=== PATIENT | male | born 1980 | race Caucasian/White ===

== ENCOUNTER 2019-01-02 17:51 | Inpatient (IN) ==
--- NOTE | 2019-01-02 18:14 | Emergency Department Note ---
Disposition Clinical Impression: Suicidal ideation, Positive urine drug screen Chest pain Qualifiers: Chest pain type: unspecified Qualified Code(s): R07.9 - Chest pain, unspecified Disposition: Still a Patient Condition: Good Referrals: NONE,PCP [Primary Care Provider] - Forms: ED Satisfaction Letter Time of Disposition: 22:21 General Adult HPI - General Chief complaint: ED Chest Pain Stated complaint: CP,SI Time Seen by Provider: 01/02/19 17:57 Source: patient Mode of arrival: private vehicle Limitations: no limitations Nursing Notes Reviewed: Yes Vital Signs Reviewed: Yes - History of Present Illness HPI Narrative: This is a 38-year-old male with a history of bipolar disorder, sick sinus syndrome, DVT and PE currently on anticoagulation who presents with multiple complaints. First complaint is chest.. States it began today. States he feels like people are out to get him and is concerned that this is anxiety. He has no history of CAD. He has no shortness of breath associated with this. Also states that he is having suicidal thoughts and thought about taking a knife today and putting it into his chest as far as it would go. States he has had prior self injury behavior before by cutting and hanging himself. Denies any alcohol or drug use. He has been compliant with his medications. No other complaints. Pt Subjective Complaint: Chest pain, suicidal thoughts Onset (ago): day(s) Location: chest Pain Scale: 8 Improves with: nothing Worsens with: nothing Associated symptoms: Reports: chest pain Treatments Prior to Arrival: none - Related Data Home Medications Medication Instructions Recorded Confirmed Rivaroxaban [Xarelto] 20 mg PO 1700 08/18/15 12/31/18 Albuterol Sulfate [Proventil 2 puff IH Q4HR PRN 10/28/18 12/31/18 Inhaler] Cholecalciferol (D-3) [Vitamin D] 1,000 unit PO DAILY 10/28/18 12/31/18 Divalproex (12 HR) [Depakote (12 1,000 mg PO HS 10/28/18 12/31/18 HR)] Divalproex (12 HR) [Depakote (12 500 mg PO QAM 10/28/18 12/31/18 HR)] Doxepin [Sinequan] 25 mg PO HS 10/28/18 12/31/18 Escitalopram [Lexapro] 10 mg PO DAILY 10/28/18 12/31/18 Lisinopril 30 mg PO DAILY 10/28/18 12/31/18 cloNIDine HCl [CloNIDine HCl] 0.2 mg PO DAILY 10/28/18 12/31/18 Previous Rx's Medication Instructions Recorded clonazePAM [Klonopin] 1 mg PO BID 15 Days #30 tablet 11/02/18 hydrOXYzine HCl [Hydroxyzine HCl] 50 mg PO TID #20 tablet 12/21/18 Allergies Allergy/AdvReac Type Severity Reaction Status Date / Time haloperidol [From Haldol] Allergy See Verified 01/02/19 17:54 Comments quetiapine [From Seroquel] Allergy Swelling Verified 01/02/19 17:54 of Lip/Tongue/Throat vancomycin Allergy Anaphylaxis Verified 01/02/19 17:54 SOLUMEDROL Allergy Anaphylaxis Uncoded 12/21/18 01:29 All systems ED: reviewed and negative except as stated. Constitutional: Denies: fever Cardiovascular: Reports: chest pain Respiratory: Denies: cough, dyspnea Gastrointestinal: Denies: abdominal pain, nausea, vomiting, diarrhea Psychiatric: Reports: anxiety, depression, suicidal thoughts. Denies: homicidal thoughts, auditory hallucinations, visual hallucinations Past Medical History - Past Medical History Attestation: Yes The following information was validated with the patient. Source: patient Medical history: Reports: cardiomyopathy, CHF, DVT, hyperlipidemia, hypertension, IV drug use, kidney stones, pulmonary embolus, other Surgical history: Reports: pacemaker/AICD, other Psychiatric history: Reports: anxiety, ADHD, bipolar, PTSD, prior suicide attempt, previous psychiatric hospitalization - Social History Smoking Status: Current every day smoker Smokeless Tobacco Status: No Alcohol use: Reports: none Drug use: Reports: cocaine, opiates, marijuana, methamphetamine, other Physical Exam - General Limitations: no limitations General appearance: alert, anxious - Head Head exam: atraumatic, normocephalic, normal inspection - Eye Eye exam: Present: normal appearance - ENT ENT exam: normal exam - Neck Neck exam: Present: normal inspection - Chest Chest inspection: Present: normal inspection, symmetric chest wall rise - Respiratory Respiratory exam: Present: normal lung sounds bilaterally - Cardiovascular Cardiovascular exam: Present: normal rhythm, tachycardia, irregular rhythm - Abdominal Exam Abdominal exam: Present: soft, Non-Tender. Absent: tenderness, distention, guarding, rigidity - Extremities Exam Extremities exam: Present: normal inspection, full ROM - Expanded Upper Extremity Exam Shoulder exam: Present: normal inspection, full ROM Arm exam: Present: normal inspection, full ROM Elbow exam: Present: normal inspection, full ROM Forearm/Wrist exam: Present: normal inspection, full ROM Hand exam: Present: normal inspection, full ROM Vascular exam: Normal: radial pulse - Expanded Lower Extremity Exam Hip/Pelvis exam: Present: normal inspection, full ROM Upper leg exam: Present: normal inspection, full ROM Knee exam: Present: normal inspection, full ROM Lower leg exam: Present: normal inspection, full ROM Ankle exam: Present: normal inspection, full ROM Foot/toe exam: Present: normal inspection, full ROM - Neurological Exam Neurological exam: Present: alert, other (Alert, GCS 15, no focal deficits) - Psychiatric Psychiatric exam: Present: anxious, suicidal ideation - Skin Skin exam: Present: warm, dry Course Course Narrative: Seen and examined. He is rather anxious here. He has current thoughts of killing himself. Patient is pink slipped. We will get an EKG, chest x-ray and troponin for chest pain, labs for medical clearance for psychiatric evaluation. - Reevaluation(s) Reevaluation #1: Patient has a heart score is low risk. CTA negative for pulmonary embolism. Discussed with psychiatry who will be down to evaluate the patient. Reevaluation #2: Patient evaluated by psychiatry. They are first going to attempt to place him back to the facility that he was discharged from. Pending placement. Time: 22:16 Vital Signs Temperature 98.1 F 01/02/19 17:52 Pulse Rate 106 01/02/19 17:52 Respiratory Rate 16 01/02/19 17:52 Blood Pressure 144/95 01/02/19 17:52 O2 Sat by Pulse Oximetry 97 01/02/19 17:52 Temperature 98.1 F 01/02/19 17:52 Pulse Rate 85 01/02/19 20:55 Respiratory Rate 18 01/02/19 20:55 Blood Pressure 125/74 01/02/19 20:55 O2 Sat by Pulse Oximetry 99 01/02/19 20:55 Oxygen Delivery Oxygen Delivery Room Air Medical Decision Making - MDM Narrative Medical decision making narrative: 38-year-old male with underlying bipolar disorder who presented with chest pain and suicidal ideations. In terms of his chest pain he is low risk per heart score. CTA negative for PE. Was medically cleared and evaluated by psychiatry. At the time of this documentation we are attempting to place him. Patient has been pink slipped. 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 Mcnair, pending placement. - Lab Data Lab results reviewed: Yes I reviewed the patient's lab results. Result diagrams: 01/02/19 18:08 01/02/19 18:08 Lab Results 01/02/19 01/02/19 01/02/19 Range/Units 18:05 18:05 18:08 WBC 6.5 (4.3-11.1) K/mcL RBC 3.92 L (4.19-5.50) M/mcL Hgb 12.1 L D (12.9-16.9) g/dL Hct 35.8 L (37.5-50.1) % MCV 91.3 (83.0-100.0) fL MCH 30.9 (28.0-33.3) pg MCHC 33.8 (31.6-35.5) g/dL RDW 13.0 (11.5-14.5) % Plt Count 241 (140-400) K/mcL MPV 9.6 (9.4-12.4) fL Immature Gran % 0.2 (0-4) % Seg Neutrophils % 49.2 % Lymphocytes % 38.5 % Monocytes % 9.0 % Eosinophils % 2.8 % Basophils % 0.3 % Neutrophils # 3.2 (1.6-8.9) K/mcL Lymphocytes # 2.5 (0.6-4.6) K/mcL Monocytes # 0.6 (0.0-1.3) K/mcL Eosinophils # 0.2 (0.0-0.6) K/mcL Basophils # 0.0 (0.0-0.2) K/mcL Sodium (136-145) mEq/L Potassium (3.5-5.1) mEq/L Chloride (98-107) mEq/L Carbon Dioxide (23-29) mEq/L BUN (6-20) mg/dL Creatinine (0.70-1.30) mg/dL Est GFR ( Amer) (> 60) Est GFR (Non-Af Amer) (> 60) BUN/Creatinine Ratio (6-26) Glucose (70-105) mg/dL Calculated Osmolality (280-300) Calcium (8.6-10.3) mg/dL Troponin I (< 0.04) ng/mL Urine Color Yellow (Yellow) Urine Clarity Clear (Clear) Urine pH 6.0 (5.0-8.0) pH Units Ur Specific [place] 1.022 (1.010-1.025) Urine Protein Negative (Neg-Trace) mg/dL Urine Glucose (UA) Normal (Normal) mg/dL Urine Ketones Trace H (Negative) mg/dL Urine Blood Negative (Negative) Urine Nitrite Negative (Negative) Urine Bilirubin Negative (Negative) Urine Urobilinogen Normal (Normal) mg/dL Ur Leukocyte Esterase Negative (Negative) Salicylates (15.0-30.0) mg/dL Urine Opiates Screen Negative (Rhjlfs=585) ng/mL Ur Buprenorphine Scrn Positive H (Cutoff=5) ng/mL Acetaminophen (10-20) mcg/mL Ur Barbiturates Screen Negative (Wvelzc=158) ng/mL Valproic Acid (50-100) mcg/mL Ur Phencyclidine Scrn Negative (Cutoff=25) ng/mL Ur Amphetamines Screen Positive H (Jpgiss=1581) ng/mL U Benzodiazepines Scrn Negative (Jyohxi=364) ng/mL Urine Cocaine Screen Negative (Cutoff= 300) ng/mL U Marijuana (THC) Screen Negative (Cutoff = 50) ng/mL Ur Drug Screen Interp See Below Ethyl Alcohol (Less than 10) mg/dL 01/02/19 01/02/19 Range/Units 18:08 18:08 WBC (4.3-11.1) K/mcL RBC (4.19-5.50) M/mcL Hgb (12.9-16.9) g/dL Hct (37.5-50.1) % MCV (83.0-100.0) fL MCH (28.0-33.3) pg MCHC (31.6-35.5) g/dL RDW (11.5-14.5) % Plt Count (140-400) K/mcL MPV (9.4-12.4) fL Immature Gran % (0-4) % Seg Neutrophils % % Lymphocytes % % Monocytes % % Eosinophils % % Basophils % % Neutrophils # (1.6-8.9) K/mcL Lymphocytes # (0.6-4.6) K/mcL Monocytes # (0.0-1.3) K/mcL Eosinophils # (0.0-0.6) K/mcL Basophils # (0.0-0.2) K/mcL Sodium 141 (136-145) mEq/L Potassium 3.8 (3.5-5.1) mEq/L Chloride 107 (98-107) mEq/L Carbon Dioxide 25 (23-29) mEq/L BUN 13 (6-20) mg/dL Creatinine 0.70 (0.70-1.30) mg/dL Est GFR ( Amer) > 60 (> 60) Est GFR (Non-Af Amer) > 60 (> 60) BUN/Creatinine Ratio 19 (6-26) Glucose 115 H (70-105) mg/dL Calculated Osmolality 293 (280-300) Calcium 8.9 (8.6-10.3) mg/dL Troponin I < 0.03 (< 0.04) ng/mL Urine Color (Yellow) Urine Clarity (Clear) Urine pH (5.0-8.0) pH Units Ur Specific [place] (1.010-1.025) Urine Protein (Neg-Trace) mg/dL Urine Glucose (UA) (Normal) mg/dL Urine Ketones (Negative) mg/dL Urine Blood (Negative) Urine Nitrite (Negative) Urine Bilirubin (Negative) Urine Urobilinogen (Normal) mg/dL Ur Leukocyte Esterase (Negative) Salicylates < 2.5 L (15.0-30.0) mg/dL Urine Opiates Screen (Ldmrlk=139) ng/mL Ur Buprenorphine Scrn (Cutoff=5) ng/mL Acetaminophen < 10 L (10-20) mcg/mL Ur Barbiturates Screen (Aeessz=822) ng/mL Valproic Acid 68 (50-100) mcg/mL Ur Phencyclidine Scrn (Cutoff=25) ng/mL Ur Amphetamines Screen (Xcwqjz=5975) ng/mL U Benzodiazepines Scrn (Zwxmlf=058) ng/mL Urine Cocaine Screen (Cutoff= 300) ng/mL U Marijuana (THC) Screen (Cutoff = 50) ng/mL Ur Drug Screen Interp Ethyl Alcohol < 10 (Less than 10) mg/dL - Radiology Data Radiology results reviewed: Yes I reviewed the patient's radiology results. Chest X-Ray 01/02/19 17:57 IMPRESSION: No radiographic evidence of acute cardiopulmonary disease. D/ / Luis Croft / Luis Croft Interpreting Provider: Luis Croft Chest CTA 01/02/19 19:36 IMPRESSION: No evidence of pulmonary embolism or acute pulmonary abnormality. D/ / Rajesh Ackerman MD / Rajesh Ackerman MD Interpreting Provider: Rajesh Ackerman MD - EKG Data EKG #1 EKG attestation: Yes I reviewed and interpreted this EKG. EKG results narrative: EKG demonstrates a sinus rhythm with rate of 93 beats or minute. Normal axis. Normal intervals. Normal R-wave progression. No gross ST elevations or depress ions. No acute ischemic findings.
[2019-01-02 18:38] LABS: Basophils % 0.3 %; Eosinophils # 0.2 K/mcL (0.0-0.6); Eosinophils % 2.8 %; Hematocrit 35.8 % (37.5-50.1); Immature Granulocytes % 0.2 % (0-4); Lymphocytes # 2.5 K/mcL (0.6-4.6); Lymphocytes % 38.5 %; Mean Corpuscular HGB Conc 33.8 g/dL (31.6-35.5); Mean Corpuscular Hemoglobin 30.9 pg (28.0-33.3); Mean Corpuscular Volume 91.3 fL (83.0-100.0); Mean Platelet Volume 9.6 fL (9.4-12.4); Monocytes # 0.6 K/mcL (0.0-1.3); Neutrophils # 3.2 K/mcL (1.6-8.9); Platelet Count 241 K/mcL (140-400); Red Blood Count 3.92 M/mcL (4.19-5.50); Segmented Neutrophils % 49.2 %; White Blood Count 6.5 K/mcL (4.3-11.1)
[2019-01-02 18:44] LABS: Hemoglobin 12.1 g/dL (12.9-16.9)
[2019-01-02 18:51] LABS: Bilirubin,Urine Negative (Negative); Blood,Urine Negative (Negative); Clarity,Urine Clear (Clear); Color,Urine Yellow (Yellow); Glucose,Urine (UA) Normal (Normal); Ketones,Urine Trace mg/dL (Negative); Leukocyte Esterase,Urine Negative (Negative); Nitrite,Urine Negative (Negative); Protein,Urine Negative (Neg-Trace); Specific Gravity,Urine 1.022 (1.010-1.025); Urobilinogen,Urine Normal (Normal)
[2019-01-02 18:56] LABS: Troponin I < 0.03 ng/mL (< 0.04)
[2019-01-02 19:00] LABS: Acetaminophen < 10 mcg/mL (10-20); BUN/Creatinine Ratio 19 (6-26); Blood Urea Nitrogen 13 mg/dL (6-20); Calcium 8.9 mg/dL (8.6-10.3); Carbon Dioxide 25 mEq/L (23-29); Chloride 107 mEq/L (98-107); Ethanol < 10 mg/dL (Less than 10); Glucose 115 mg/dL (70-105); Osmolality,Calculated 293 (280-300); Potassium 3.8 mEq/L (3.5-5.1); Salicylate < 2.5 mg/dL (15.0-30.0); Sodium 141 mEq/L (136-145); eGFR For African Americans > 60 (> 60); eGFR For Non-African Americans > 60 (> 60)
[2019-01-02 19:03] LABS: Valproate 68 mcg/mL (50-100)
[2019-01-02 19:09] LABS: Amphetamine Screen,Urine Positive ng/mL (Cutoff=1000); Barbiturate Screen,Urine Negative ng/mL (Cutoff=200); Benzodiazepines Screen,Urine Negative ng/mL (Cutoff=200); Cannabinoid Screen,Urine Negative ng/mL (Cutoff = 50); Cocaine Screen,Urine Negative ng/mL (Cutoff= 300); Opiate Screen,Urine Negative ng/mL (Cutoff=300); Phencyclidine Screen,Urine Negative ng/mL (Cutoff=25)
[2019-01-02] MEDS ORDERED: Isovue-370 500 ML BOTTLE IVP ONE (19:36)
[2019-01-02] MEDS ORDERED: rOPINIRole 1 MG TABLET PO SCH (23:15)
[2019-01-02] MEDS ORDERED: Divalproex (12 HR) 500 MG TABLET PO SCH (23:15)
--- NOTE | 2019-01-03 02:11 | Emergency Department Note ---
Disposition Clinical Impression: Suicidal ideation, Positive urine drug screen Chest pain Qualifiers: Chest pain type: unspecified Qualified Code(s): R07.9 - Chest pain, unspecified Disposition: Still a Patient Condition: Good Referrals: NONE,PCP [Primary Care Provider] - Forms: ED Satisfaction Letter Time of Disposition: 06:51 General Adult HPI - General Chief complaint: ED Chest Pain Stated complaint: CP,SI Time Seen by Provider: 01/02/19 17:57 Source: patient Mode of arrival: private vehicle Limitations: no limitations - History of Present Illness Location: chest Pain Scale: 8 Improves with: nothing Worsens with: nothing Associated symptoms: Reports: chest pain Treatments Prior to Arrival: none - Related Data Home Medications Medication Instructions Recorded Confirmed Rivaroxaban [Xarelto] 20 mg PO 1700 08/18/15 01/02/19 Albuterol Sulfate [Proventil 2 puff IH Q4HR PRN 10/28/18 01/02/19 Inhaler] Divalproex (12 HR) [Depakote (12 1,000 mg PO HS 10/28/18 01/02/19 HR)] Divalproex (12 HR) [Depakote (12 500 mg PO QAM 10/28/18 01/02/19 HR)] Lisinopril 30 mg PO DAILY 10/28/18 01/02/19 Benztropine [Cogentin] 0.5 mg PO BID 01/02/19 01/02/19 Doxepin HCl 50 mg PO HS 01/02/19 01/02/19 Gabapentin [Neurontin] 300 mg PO TID 01/02/19 01/02/19 Pantoprazole Sodium [Protonix] 40 mg PO QAM 01/02/19 01/02/19 Ranitidine HCl [Acid Field Sales Executive] 150 mg PO BID PRN 01/02/19 01/02/19 rOPINIRole [Requip] 1 mg PO HS 01/02/19 01/02/19 Previous Rx's Medication Instructions Recorded clonazePAM [Klonopin] 1 mg PO BID 15 Days #30 tablet 11/02/18 Allergies Allergy/AdvReac Type Severity Reaction Status Date / Time haloperidol [From Haldol] Allergy See Verified 01/02/19 17:54 Comments quetiapine [From Seroquel] Allergy Swelling Verified 01/02/19 17:54 of Lip/Tongue/Throat vancomycin Allergy Anaphylaxis Verified 01/02/19 17:54 SOLUMEDROL Allergy Anaphylaxis Uncoded 12/21/18 01:29 Constitutional: Denies: fever Cardiovascular: Reports: chest pain Respiratory: Denies: cough, dyspnea Gastrointestinal: Denies: abdominal pain, nausea, vomiting, diarrhea Psychiatric: Reports: anxiety, depression, suicidal thoughts. Denies: homicidal thoughts, auditory hallucinations, visual hallucinations Past Medical History - Past Medical History Medical history: Reports: cardiomyopathy, CHF, DVT, hyperlipidemia, hypertension, IV drug use, kidney stones, pulmonary embolus, other Surgical history: Reports: pacemaker/AICD, other Psychiatric history: Reports: anxiety, ADHD, bipolar, PTSD, prior suicide attempt, previous psychiatric hospitalization - Social History Smoking Status: Current every day smoker Smokeless Tobacco Status: No Alcohol use: Reports: none Drug use: Reports: cocaine, opiates, marijuana, methamphetamine, other Physical Exam - General Limitations: no limitations General appearance: alert, anxious Course Course Narrative: This patient was signed out to me at shift change from Dr. Callahan. Please refer to his note for complete details of the history and physical examination. Patient presented to the emergency department with multiple complaints including suicidal ideation. Patient was apparently just discharged from a psychiatric facility. Labs obtained and patient medically cleared for psychiatric evaluation here in the department. Patient was seen and evaluated by the [address] psychiatry department and at shift change is currently awaiting psychiatric bed placement. 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 At morning shift change [facility], Dr. Zhao. Vital Signs Temperature 98.1 F 01/02/19 17:52 Pulse Rate 106 01/02/19 17:52 Respiratory Rate 16 01/02/19 17:52 Blood Pressure 144/95 01/02/19 17:52 O2 Sat by Pulse Oximetry 97 01/02/19 17:52 Temperature 98.1 F 01/02/19 17:52 Pulse Rate 68 01/03/19 06:15 Respiratory Rate 16 01/03/19 06:15 Blood Pressure 109/74 01/03/19 06:15 O2 Sat by Pulse Oximetry 98 01/03/19 06:15 Oxygen Delivery Oxygen Delivery Room Air Medical Decision Making - Lab Data Result diagrams: 01/02/19 18:08 01/02/19 18:08 Lab Results 01/02/19 01/02/1901/02/19 Range/Units 18:05 18:05 18:08 WBC 6.5 (4.3-11.1) K/mcL RBC 3.92 L (4.19-5.50) M/mcL Hgb 12.1 L D (12.9-16.9) g/dL Hct 35.8 L (37.5-50.1) % MCV 91.3 (83.0-100.0) fL MCH 30.9 (28.0-33.3) pg MCHC 33.8 (31.6-35.5) g/dL RDW 13.0 (11.5-14.5) % Plt Count 241 (140-400) K/mcL MPV 9.6 (9.4-12.4) fL Immature Gran % 0.2 (0-4) % Seg Neutrophils % 49.2 % Lymphocytes % 38.5 % Monocytes % 9.0 % Eosinophils % 2.8 % Basophils % 0.3 % Neutrophils # 3.2 (1.6-8.9) K/mcL Lymphocytes # 2.5 (0.6-4.6) K/mcL Monocytes # 0.6 (0.0-1.3) K/mcL Eosinophils # 0.2 (0.0-0.6) K/mcL Basophils # 0.0 (0.0-0.2) K/mcL Sodium (136-145) mEq/L Potassium (3.5-5.1) mEq/L Chloride (98-107) mEq/L Carbon Dioxide (23-29) mEq/L BUN (6-20) mg/dL Creatinine (0.70-1.30) mg/dL Est GFR ( Amer) (> 60) Est GFR (Non-Af Amer) (> 60) BUN/Creatinine Ratio (6-26) Glucose (70-105) mg/dL Calculated Osmolality (280-300) Calcium (8.6-10.3) mg/dL Troponin I (< 0.04) ng/mL Urine Color Yellow (Yellow) Urine Clarity Clear (Clear) Urine pH 6.0 (5.0-8.0) pH Units Ur Specific [place] 1.022 (1.010-1.025) Urine Protein Negative (Neg-Trace) mg/dL Urine Glucose (UA) Normal (Normal) mg/dL Urine Ketones Trace H (Negative) mg/dL Urine Blood Negative (Negative) Urine Nitrite Negative (Negative) Urine Bilirubin Negative (Negative) Urine Urobilinogen Normal (Normal) mg/dL Ur Leukocyte Esterase Negative (Negative) Salicylates (15.0-30.0) mg/dL Urine Opiates Screen Negative (Klpsmo=320) ng/mL Ur Buprenorphine Scrn Positive H (Cutoff=5) ng/mL Acetaminophen (10-20) mcg/mL Ur Barbiturates Screen Negative (Ddcucd=673) ng/mL Valproic Acid (50-100) mcg/mL Ur Phencyclidine Scrn Negative (Cutoff=25) ng/mL Ur Amphetamines Screen Positive H (Wrxcxn=9873) ng/mL U Benzodiazepines Scrn Negative (Nvyvya=878) ng/mL Urine Cocaine Screen Negative (Cutoff= 300) ng/mL U Marijuana (THC) Screen Negative (Cutoff = 50) ng/mL Ur Drug Screen Interp See Below Ethyl Alcohol (Less than 10) mg/dL 01/02/19 01/02/19 Range/Units 18:08 18:08 WBC (4.3-11.1) K/mcL RBC (4.19-5.50) M/mcL Hgb (12.9-16.9) g/dL Hct (37.5-50.1) % MCV (83.0-100.0) fL MCH (28.0-33.3) pg MCHC (31.6-35.5) g/dL RDW (11.5-14.5) % Plt Count (140-400) K/mcL MPV (9.4-12.4) fL Immature Gran % (0-4) % Seg Neutrophils % % Lymphocytes % % Monocytes % % Eosinophils % % Basophils % % Neutrophils # (1.6-8.9) K/mcL Lymphocytes # (0.6-4.6) K/mcL Monocytes # (0.0-1.3) K/mcL Eosinophils # (0.0-0.6) K/mcL Basophils # (0.0-0.2) K/mcL Sodium 141 (136-145) mEq/L Potassium 3.8 (3.5-5.1) mEq/L Chloride 107 (98-107) mEq/L Carbon Dioxide 25 (23-29) mEq/L BUN 13 (6-20) mg/dL Creatinine 0.70 (0.70-1.30) mg/dL Est GFR ( Amer) > 60 (> 60) Est GFR (Non-Af Amer) > 60 (> 60) BUN/Creatinine Ratio 19 (6-26) Glucose 115 H (70-105) mg/dL Calculated Osmolality 293 (280-300) Calcium 8.9 (8.6-10.3) mg/dL Troponin I < 0.03 (< 0.04) ng/mL Urine Color (Yellow) Urine Clarity (Clear) Urine pH (5.0-8.0) pH Units Ur Specific [place] (1.010-1.025) Urine Protein (Neg-Trace) mg/dL Urine Glucose (UA) (Normal) mg/dL Urine Ketones (Negative) mg/dL Urine Blood (Negative) Urine Nitrite (Negative) Urine Bilirubin (Negative) Urine Urobilinogen (Normal) mg/dL Ur Leukocyte Esterase (Negative) Salicylates < 2.5 L (15.0-30.0) mg/dL Urine Opiates Screen (Wrvpgw=353) ng/mL Ur Buprenorphine Scrn (Cutoff=5) ng/mL Acetaminophen < 10 L (10-20) mcg/mL Ur Barbiturates Screen (Ixcnlg=710) ng/mL Valproic Acid 68 (50-100) mcg/mL Ur Phencyclidine Scrn (Cutoff=25) ng/mL Ur Amphetamines Screen (Xihfsv=3820) ng/mL U Benzodiazepines Scrn (Klwvpv=485) ng/mL Urine Cocaine Screen (Cutoff= 300) ng/mL U Marijuana (THC) Screen (Cutoff = 50) ng/mL Ur Drug Screen Interp Ethyl Alcohol < 10 (Less than 10) mg/dL
[2019-01-03] MEDS: *HR* Rivaroxaban 10 MG TABLET PO SCH ×2 (02:32→16:19)
[2019-01-03] MEDS ORDERED: Lisinopril 20 MG TABLET PO SCH (09:00)
[2019-01-03] MEDS ORDERED: Divalproex (12 HR) 500 MG TABLET PO SCH (09:00)
[2019-01-03] MEDS: clonazePAM 1 MG TABLET PO SCH ×2 (09:37)
[2019-01-03] MEDS: Gabapentin 300 MG CAPSULE PO SCH ×4 (09:38→20:52)
--- NOTE | 2019-01-03 15:10 | Electrocardiograph Report ---
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
[2019-01-03] MEDS ORDERED: *HR* LORazepam 1 MG TABLET PO PRN (17:22)
[2019-01-03] MEDS ORDERED: Acetaminophen 325 MG TABLET PO PRN (17:22)
[2019-01-03] MEDS ORDERED: *HR* LORazepam 2 MG/ML VIAL IM PRN (17:22)
[2019-01-03] MEDS ORDERED: traZODone 50 MG TABLET PO PRN (17:22)
[2019-01-03] MEDS ORDERED: Mag Hydrox/Al Hydrox/Simeth 30 ML UDC PO PRN (17:22)
[2019-01-03] MEDS ORDERED: MOM Conc 10 ML UD.LIQ PO PRN (17:22)
[2019-01-03] MEDS ORDERED: Ziprasidone 20 MG CAPSULE PO PRN (17:25)
[2019-01-03] MEDS ORDERED: Ziprasidone 20 MG in Water for inj. (sterile) 1 ML IM PRN (17:26)
[2019-01-03] MEDS: rOPINIRole 1 MG TABLET PO SCH (20:51)
[2019-01-03] MEDS: Divalproex (12 HR) 500 MG TABLET PO SCH (20:52)
[2019-01-04] MEDS: Divalproex (12 HR) 500 MG TABLET PO SCH ×2 (10:03→20:19)
[2019-01-04] MEDS: Lisinopril 20 MG TABLET PO SCH (10:04)
[2019-01-04] MEDS: Gabapentin 300 MG CAPSULE PO SCH ×3 (10:04→20:19)
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
[2019-01-04] MEDS: Nicotine 2 MG GUM BC PRN ×3 (12:30→20:58)
[2019-01-04 13:00] LABS: Chol/HDL Ratio 4.2 (0-4.9)
[2019-01-04 14:34] LABS: Estimated Average Glucose 103 mg/dl
[2019-01-04] MEDS: *HR* Rivaroxaban 10 MG TABLET PO SCH (16:56)
[2019-01-04] MEDS: traZODone 50 MG TABLET PO SCH (20:19)
[2019-01-04] MEDS: rOPINIRole 1 MG TABLET PO SCH (20:19)
[2019-01-05] MEDS: Lisinopril 20 MG TABLET PO SCH (09:22)
[2019-01-05] MEDS: Gabapentin 300 MG CAPSULE PO SCH ×3 (09:23→21:39)
[2019-01-05] MEDS: Divalproex (12 HR) 500 MG TABLET PO SCH ×2 (09:23→21:38)
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
[2019-01-05] MEDS: Venlafaxine XR (24 HR) 37.5 MG CAP.ER.24H PO SCH (11:16)
[2019-01-05] MEDS: *HR* Rivaroxaban 10 MG TABLET PO SCH (17:00)
[2019-01-05] MEDS: traZODone 50 MG TABLET PO SCH (21:40)
[2019-01-05] MEDS: rOPINIRole 1 MG TABLET PO SCH (21:40)
[2019-01-05] MEDS: Nicotine 2 MG GUM BC PRN (21:43)
--- NOTE | 2019-01-06 09:56 | Psychiatry Progress Note ---
Date of Encounter: 01/06/19 Time of Encounter: 09:30 Subjective Interval history: Patient says that he is tolerating the Effexor. He reports feeling somewhat better. This morning he denies suicidal thoughts the yesterday he said he was having them. He continues to have concerns about him trying to hurt him in the community. He has not been attending groups but he does come out for meals and makes his needs known. He continues to report some hopelessness. Review of Systems Psychiatric: Reports: depression, anxiety, abnormal sleep pattern, difficulty concentrating. Denies: homicidal ideation, auditory hallucinations, visual hallucinations Results - Vital Signs Vital Signs: Temp Pulse Resp BP Pulse Ox 97.6 F 65 16 127/74 98 01/06/19 09:00 01/06/19 09:00 01/06/19 09:00 01/06/19 09:00 01/06/19 09:00 - Impressions ITS Impressions Chest X-Ray 01/02/19 17:57 IMPRESSION: No radiographic evidence of acute cardiopulmonary disease. D/ / Luis Croft / Luis Croft Interpreting Provider: Luis Croft Chest CTA 01/02/19 19:36 IMPRESSION: No evidence of pulmonary embolism or acute pulmonary abnormality. D/ / Rajesh Ackerman MD / Rajesh Ackerman MD Interpreting Provider: Rajesh Ackerman MD Assessment and Plan (1) Bipolar II disorder Current visit: No Status: Acute Plan: Continue hospitalization, Close observation, Suicide Precautions per unit protocol, Encourage participation in unit milieu, Group Therapy, Monitor sleep, Monitor appetite Additional Plan: Continue current medications, encourage group therapy, [facility]. Risks, benefits, side effects, alternatives discussed w/pt: Yes Patient agreeable to treatment: Yes Consult Discharge Plan - Plan Referrals: [facility] [Outside] - 01/08/19 2:30 pm (Please contact the clinic at the number above to schedule a follow-up appointment with Abby Whatley. Please continue attending groups on January 08 at 2:30 and Mariza 23rd at 2:30.) Psychiatry Exam - Constitutional Vitals: Temp Pulse Resp BP Pulse Ox 97.6 F 65 16 127/74 98 01/06/19 09:00 01/06/19 09:00 01/06/19 09:00 01/06/19 09:00 01/06/19 09:00 General appearance: age & developmentally appropriate - Musculoskeletal Gait: slow Station: relaxed Strength & Tone: normal for patient - Psychiatric Patient Orientation: Yes Person, Yes Time, Yes Place, Yes Circumstance Level of alertness: Alert Behavior: calm, cooperative Psychomotor activity: Normal Eye Contact: Maintains Eye Contact Mood Description: Depressed Patient description of mood: Depressed Affect description: congruent with mood Speech Volume: Normal Speech pattern: normal rate, normal rhythm, normal tone, fluent, spontaneous Language & Vocabulary: consistent with education Thought Process: Linear, Goal Oriented Thought Content: No Suicidal ideation, No Homicidal ideation, No Overt delusions Perceptual Disturbances: Yes Reacting to internal stimuli Attention Span Ability: Capable of Focused Attention Memory Description: Grossly Intact Patient Reliability: Reliable Historian Fund of knowledge: Yes abstraction ability, Yes aware of current events Intelligence Estimate: Average Judgment: Limited Insight: Minimal
[2019-01-06] MEDS: Venlafaxine XR (24 HR) 37.5 MG CAP.ER.24H PO SCH (09:57)
[2019-01-06] MEDS: Lisinopril 20 MG TABLET PO SCH (09:58)
[2019-01-06] MEDS: Gabapentin 300 MG CAPSULE PO SCH ×3 (09:58→21:12)
[2019-01-06] MEDS: Divalproex (12 HR) 500 MG TABLET PO SCH ×2 (09:58→21:10)
[2019-01-06] MEDS: Nicotine 2 MG GUM BC PRN ×4 (10:23→21:55)
[2019-01-06] MEDS: *HR* Rivaroxaban 10 MG TABLET PO SCH (15:58)
[2019-01-06] MEDS: rOPINIRole 1 MG TABLET PO SCH (21:12)
[2019-01-06] MEDS: traZODone 50 MG TABLET PO SCH ×2 (21:16→23:40)
[2019-01-07] MEDS: Gabapentin 300 MG CAPSULE PO SCH ×3 (09:23→21:31)
[2019-01-07] MEDS: Lisinopril 20 MG TABLET PO SCH (09:23)
[2019-01-07] MEDS: Divalproex (12 HR) 500 MG TABLET PO SCH ×2 (09:24→21:35)
[2019-01-07] MEDS: Venlafaxine XR (24 HR) 75 MG CAP.ER.24H PO SCH (09:25)
[2019-01-07] MEDS: Nicotine 2 MG GUM BC PRN ×4 (09:26→21:37)
[2019-01-07] MEDS: Venlafaxine XR (24 HR) 37.5 MG CAP.ER.24H PO SCH (09:27)
--- NOTE | 2019-01-07 09:51 | Psychiatry Progress Note ---
Date of Encounter: 01/07/19 Time of Encounter: 09:40 Subjective Interval history: Patient continues to report some depression with passive suicidal ideations with no plans. He has no hallucinations at this time. He continues to fear that someone in the community is after him. He does seem there is some truth so related to this. He also does not bring it up often unless it is brought up to him and he does not appear fearful or paranoid. He does not attend groups but he comes out for meals and easily makes his needs known to staff. He is future oriented and now wants to move to [place]. Review of Systems Psychiatric: Reports: depression, anxiety. Denies: homicidal ideation, auditory hallucinations, visual hallucinations Results - Vital Signs Vital Signs: Temp Pulse Resp BP Pulse Ox 97.9 F 67 18 124/80 98 01/07/19 09:00 01/07/19 09:00 01/07/19 09:00 01/07/19 09:00 01/07/19 09:00 - Impressions ITS Impressions Chest X-Ray 01/02/19 17:57 IMPRESSION: No radiographic evidence of acute cardiopulmonary disease. D/ / Luis Croft / Luis Croft Interpreting Provider: Luis Croft Chest CTA 01/02/19 19:36 IMPRESSION: No evidence of pulmonary embolism or acute pulmonary abnormality. D/ / Rajesh Ackerman MD / Rajesh Ackerman MD Interpreting Provider: Rajesh Ackerman MD Assessment and Plan (1) Bipolar II disorder Current visit: No Status: Acute Plan: Continue hospitalization, Close observation, Suicide Precautions per unit protocol, Encourage participation in unit milieu, Group Therapy, Monitor sleep, Monitor appetite Additional Plan: Increase Effexor XR to 75 mg by mouth every morning. Encourage group attendance. We will look at discharging him likely on Tuesday. Risks, benefits, side effects, alternatives discussed w/pt: Yes Patient agreeable to treatment: Yes Consult Discharge Plan - Plan [facility]08[facility] 2:30 pm (Please contact the clinic at the number above to schedule a follow-up appointment with Abby Whatley. Please continue attending groups on January 08 at 2:30 and January 15 at 2:30.) Psychiatry Exam - Constitutional Vitals: Temp Pulse Resp BP Pulse Ox 97.9 F 67 18 124/80 98 01/07/19 09:00 01/07/19 09:00 01/07/19 09:00 01/07/19 09:00 01/07/19 09:00 General appearance: age & developmentally appropriate, well-groomed, well- nourished - Musculoskeletal Gait: normal Station: relaxed Strength & Tone: normal for patient - Psychiatric Patient Orientation: Yes Person, Yes Time, Yes Place, Yes Circumstance Level of alertness: Alert Behavior: anxious Psychomotor activity: Normal Eye Contact: Maintains Eye Contact Mood Description: Depressed, Anxious Patient description of mood: Worried Affect description: congruent with mood, full range Speech Volume: Normal Speech pattern: normal rate, normal rhythm, normal tone, fluent, spontaneous Language & Vocabulary: consistent with education Thought Process: Linear, Goal Oriented Thought Content: Yes Suicidal ideation (No plan), No Homicidal ideation, No Overt delusions, Yes Paranoid delusion (Unclear if these are somewhat delusional or is there really reality-based) Perceptual Disturbances: No Auditory hallucinations, No Visual hallucinations Attention Span Ability: Capable of Focused Attention Memory Description: Grossly Intact Patient Reliability: Reliable Historian Fund of knowledge: Yes abstraction ability, Yes aware of current events Intelligence Estimate: Average Judgment: Fair Insight: Partial
[2019-01-07] MEDS: *HR* Rivaroxaban 10 MG TABLET PO SCH (16:58)
[2019-01-07] MEDS: traZODone 50 MG TABLET PO SCH (21:31)
[2019-01-07] MEDS: rOPINIRole 1 MG TABLET PO SCH (21:31)
[2019-01-08] MEDS: Gabapentin 300 MG CAPSULE PO SCH ×3 (08:52→20:22)
[2019-01-08] MEDS: Divalproex (12 HR) 500 MG TABLET PO SCH ×2 (08:53→20:22)
[2019-01-08] MEDS: Lisinopril 20 MG TABLET PO SCH (08:53)
[2019-01-08] MEDS: Venlafaxine XR (24 HR) 75 MG CAP.ER.24H PO SCH (08:53)
[2019-01-08] MEDS: Nicotine 2 MG GUM BC PRN ×3 (08:56→20:26)
--- NOTE | 2019-01-08 10:33 | Discharge Summary ---
Date of Encounter: 01/08/19 Time of Encounter: 08:40 Diagnosis - Discharge Diagnosis (1) Bipolar II disorder Status: Acute Medications - Discharge Medications Prescriptions: Ranitidine HCl [Acid Manager Hotel] 150 mg PO BID PRN #15 tab PRN Reason: Indigestion Transmission Status: Pending to [facility] Benztropine [Cogentin] 0.5 mg PO BID #30 tab Transmission Status: Pending to [facility] Divalproex (12 HR) [Depakote (12 HR)] 500 mg PO QAM #15 Divalproex (12 HR) [Depakote (12 HR)] 1,000 mg PO HS #30 Doxepin HCl 50 mg PO HS #15 Venlafaxine XR (24 HR) [Effexor XR] 75 mg PO DAILY #15 cap.er.24h Transmission Status: Pending to [facility] Lisinopril 30 mg PO DAILY #15 tab Transmission Status: Pending to [place] [facility] Prazosin [Minipress] 1 mg PO HS #15 capsule Transmission Status: Pending to [place] [facility] Pantoprazole Sodium [Protonix] 40 mg PO QAM #15 Albuterol Sulfate [Proventil Inhaler] 2 puff IH Q4HR PRN #1 PRN Reason: Shortness Of Breath rOPINIRole [Requip] 1 mg PO HS #15 tab Transmission Status: Pending to [facility] traZODone [TraZODone] 100 mg PO HS #30 tablet Transmission Status: Pending to [facility] Rivaroxaban [Xarelto] 20 mg PO 1700 #15 tab Transmission Status: Pending to [place] [facility] Gabapentin [Neurontin] 300 mg PO TID 01/02/19 [History] Albuterol Sulfate [Proventil Inhaler] 2 puff IH Q4HR PRN #1 01/08/19 [Rx] Benztropine [Cogentin] 0.5 mg PO BID #30 tab 01/08/19 [Rx] Divalproex (12 HR) [Depakote (12 HR)] 1,000 mg PO HS #30 01/08/19 [Rx] Divalproex (12 HR) [Depakote (12 HR)] 500 mg PO QAM #15 01/08/19 [Rx] Doxepin HCl 50 mg PO HS #15 01/08/19 [Rx] Lisinopril 30 mg PO DAILY #15 tab 01/08/19 [Rx] Pantoprazole Sodium [Protonix] 40 mg PO QAM #15 01/08/19 [Rx] Prazosin [Minipress] 1 mg PO HS #15 capsule 01/08/19 [Rx] Ranitidine HCl [Acid Manager Hotel] 150 mg PO BID PRN #15 tab 01/08/19 [Rx] Rivaroxaban [Xarelto] 20 mg PO 1700 #15 tab 01/08/19 [Rx] Venlafaxine XR (24 HR) [Effexor XR] 75 mg PO DAILY #15 cap.er.24h 01/08/19 [Rx] rOPINIRole [Requip] 1 mg PO HS #15 tab 01/08/19 [Rx] traZODone [TraZODone] 100 mg PO HS #30 tablet 01/08/19 [Rx] Allergy/AdvReac Type Severity Reaction Status Date / Time haloperidol [From Haldol] Allergy See Verified 01/02/19 17:54 Comments quetiapine [From Seroquel] Allergy Swelling Verified 01/02/19 17:54 of Lip/Tongue/Throat vancomycin Allergy Anaphylaxis Verified 01/02/19 17:54 SOLUMEDROL Allergy Anaphylaxis Uncoded 12/21/18 01:29 Results Procedures and tests throughout hospitalization: Completed Lab Orders Category Date Time Status Acetaminophen Stat Lab 01/02/19 18:08 Completed Basic Metabolic Panel Stat Lab 01/02/19 18:08 Completed Complete Blood Count [HEME] Stat Lab 01/02/19 18:08 Completed Drug Screen, Urine [UCHEM] Stat Lab 01/02/19 18:05 Completed Ethanol Stat Lab 01/02/19 18:08 Completed Hgb A1C Routine Lab 01/04/19 10:26 Completed Lipid Panel Routine Lab 01/04/19 10:26 Completed Salicylate Stat Lab 01/02/19 18:08 Completed Troponin I Stat Lab 01/02/19 18:08 Completed Urinalysis reflex Microscopic [URIN] Stat Lab 01/02/19 18:05 Completed Valproate Stat Lab 01/02/19 18:08 Completed Completed Imaging Orders Category Date Time Status CTA chest [CT angio chest] [CT] Stat Cat Scan 01/02/19 19:36 Completed XR chest 1V portable [XR] Stat Exams 01/02/19 17:57 Completed Provider Date of admission: 01/03/19 17:10 Primary care physician: PCP NONE Discharging clinician: Chelita Roper Psychiatry Exam - Constitutional Vitals: Temp Pulse Resp BP Pulse Ox 97.8 F 73 14 118/77 95 01/08/19 09:00 01/08/19 09:00 01/08/19 09:00 01/08/19 09:00 01/08/19 09:00 General appearance: age & developmentally appropriate, well-groomed, well- nourished - Musculoskeletal Gait: normal Station: relaxed Strength & Tone: normal for patient - Psychiatric Patient Orientation: Yes Person, Yes Time, Yes Place, Yes Circumstance Level of alertness: Alert Behavior: calm, cooperative Psychomotor activity: Normal Eye Contact: Maintains Eye Contact Mood Description: Euthymic/stable Patient description of mood: Fine Affect description: congruent with mood, full range Speech Volume: Normal Speech pattern: normal rate, normal rhythm, normal tone, fluent, spontaneous Language & Vocabulary: consistent with education Thought Process: Linear, Goal Oriented Thought Content: No Suicidal ideation, No Homicidal ideation, No Overt delusions Perceptual Disturbances: No Auditory hallucinations, No Visual hallucinations Attention Span Ability: Capable of Focused Attention Memory Description: Grossly Intact Patient Reliability: Reliable Historian Fund of knowledge: Yes abstraction ability, Yes aware of current events Intelligence Estimate: Average Judgment: Good Insight: Full Hospital Course Hospital course: Mr. Lee is a 38 year old male who was admitted for reported suicidal ideations. He had just gotten out of [facility] where he had been twice. On the second admission to [facility] they diagnosed him with malingering and had concerns that he had sold his benzodiazepine as he had been given a seven- day prescription and then return to days later with none in his system and saying he did not have the prescription anymore and he had methamphetamines in his system instead. When I spoke with their medical file clerk he said that the patient became very irate when he was confronted with this and demanded benzodiazepines and then threatened to throw chairs when he did not get his needs met immediately. When he was admitted here he denied all of this. Continued to demand benzodiazepines as well as other controlled substances. He would report depressive symptoms or symptoms of paranoia however his behaviors were never consistent with the reported symptoms. At this point the patient seems very hospital dependent and as though he is using the hospital to meet other needs namely homelessness. Not attend groups or do anything to suggest that he is benefiting from the hospital stay and any way. Throughout the hospital stay he has been eating well sleeping well and easily make his needs known. He has been observed to be splitting staff. During a previous hospital stay he was found in the room and in the bed with a very psychotic female patient. He was started on Effexor and prazosin for his depression and nightmares. He has Invega Sustenna on board which she received [facility]. His Cogentin was continued. Discussed risks, benefits, side effect of these alternative treatment options and he had medical capacity to give informed consent. At this time he is denying suicidal or homicidal thoughts, ideations, or plans. Time spent discussing smoking cessation with patient: 3 to 10 minutes Does patient wish to continue nicotine replacement upon disc: No - Time Spent with Patient Total time spent providing and/or coordinating discharge services: 20 Less than 30 minutes Specific discharge activities: Interval history reviewed. Available labs reviewed . Psychotherapy provided. Patient had an opportunity to ask questions and address concerns. Patient was in agreement with the treatment plan. The risks benefits and side effects of medications were discussed with the patient, including alternatives and treatment. The patient was educated on the abstaining from any alcohol or illicit substances, following up with all scheduled appointments, and taking all medications as prescribed. The patient was educated on 90 meetings in 90 days and to find a sponsor. Assessment and Plan - Patient/Caregiver Discharge Instructions Activity: resume usual activities as tolerated Diet: regular diet Additional Instructions: The patient says at this time he would like to go to [place] so the social media senior associate is working to see if she can get this happening. He says he has burned many bridges and anger too many people in [place]. - Follow up Plan Follow up with: [facility] [Outside] - 01/08/19 2:30 pm (Please contact the clinic at the number above to schedule a follow-up appointment with Abby Whatley. Please continue attending groups on January 08 at 2:30 and January 15 at 2:30.) Functional capacity at discharge: independent ambulation Overall status at discharge: Stable Disposition: Home, Self-Care Quality - Multiple Antipsychotics Patient discharged on 2 or more antipsychotic medications: No Procedures - Procedures Procedures: Medication Management, Crisis Stabilization, Supportive Therapy, Group Therapy, Psychoeducational Therapy
[2019-01-08] MEDS: *HR* Rivaroxaban 10 MG TABLET PO SCH (17:44)
[2019-01-08] MEDS: rOPINIRole 1 MG TABLET PO SCH (20:22)
[2019-01-08] MEDS: traZODone 50 MG TABLET PO SCH (20:22)
[2019-01-08] MEDS: hydrOXYzine pamoate 25 MG CAPSULE PO PRN (21:43)
[2019-01-09] MEDS: Gabapentin 300 MG CAPSULE PO SCH ×3 (09:03→21:20)
[2019-01-09] MEDS: Venlafaxine XR (24 HR) 75 MG CAP.ER.24H PO SCH (09:04)
[2019-01-09] MEDS: Lisinopril 20 MG TABLET PO SCH (09:04)
[2019-01-09] MEDS: Divalproex (12 HR) 500 MG TABLET PO SCH ×2 (09:04→21:20)
[2019-01-09] MEDS: Nicotine 2 MG GUM BC PRN ×2 (10:13→17:13)
--- NOTE | 2019-01-09 11:10 | Psychiatry Progress Note ---
Date of Encounter: 01/09/19 Time of Encounter: 08:20 Subjective Interval history: Patient reports some muscle stiffness which he first attributed to Effexor and then was trying to ask about other medications however when we discussed that it seems more likely related to his Invega Sustenna. We will increase his Cogentin. Posterior discharge yesterday however he had no way to get up to [place] which is where he would like to go. He denies suicidal or homicidal thoughts, ideations, or plans. No psychosis. Review of Systems Psychiatric: Denies: homicidal ideation, auditory hallucinations, visual hallucinations Results - Vital Signs Vital Signs: Temp Pulse Resp BP Pulse Ox 97.7 F 73 14 118/72 98 01/09/19 09:00 01/09/19 09:00 01/09/19 09:00 01/09/19 09:00 01/09/19 09:00 - Impressions ITS Impressions Chest X-Ray 01/02/19 17:57 IMPRESSION: No radiographic evidence of acute cardiopulmonary disease. D/ / Luis Croft / Luis Croft Interpreting Provider: Luis Croft Chest CTA 01/02/19 19:36 IMPRESSION: No evidence of pulmonary embolism or acute pulmonary abnormality. D/ / Rajesh Ackerman MD / Rajesh Ackerman MD Interpreting Provider: Rajesh Ackerman MD Assessment and Plan (1) Bipolar II disorder Current visit: No Status: Acute Plan: Close observation, Suicide Precautions per unit protocol, Encourage participation in unit milieu, Group Therapy, Monitor sleep, Monitor appetite Additional Plan: Patient can discharge once we have a discharge plan in place. He is stable. Will increase Cogentin to 1 twice a day for EPS symptoms. Encourage group attendance. Risks, benefits, side effects, alternatives discussed w/pt: Yes Patient agreeable to treatment: Yes Consult Discharge Plan - Plan Additional Instructions: The patient says at this time he would like to go to [place] so the delinquency prevention social worker is working to see if she can get this happening. He says he has burned many bridges and anger too many people in [place]. Referrals: [facility] [Outside] - 01/08/19 2:30 pm (Please contact the clinic at the number above to schedule a follow-up appointment with Abby Whatley. Please continue attending groups on January 08 at 2:30 and January 15 at 2:30.) Prescriptions: Ranitidine HCl [Acid Vessel Liner] 150 mg PO BID PRN #15 tab PRN Reason: Indigestion Transmission Status: Received by [facility] Benztropine [Cogentin] 0.5 mg PO BID #30 tab Transmission Status: Received by [facility] Divalproex (12 HR) [Depakote (12 HR)] 500 mg PO QAM #15 Divalproex (12 HR) [Depakote (12 HR)] 1,000 mg PO HS #30 Doxepin HCl 50 mg PO HS #15 Venlafaxine XR (24 HR) [Effexor XR] 75 mg PO DAILY #15 cap.er.24h Transmission Status: Received by [facility] Lisinopril 30 mg PO DAILY #15 tab Transmission Status: Received by [facility] Prazosin [Minipress] 1 mg PO HS #15 capsule Transmission Status: Received by [facility] Pantoprazole Sodium [Protonix] 40 mg PO QAM #15 Albuterol Sulfate [Proventil Inhaler] 2 puff IH Q4HR PRN #1 PRN Reason: Shortness Of Breath rOPINIRole [Requip] 1 mg PO HS #15 tab Transmission Status: Received by [facility] traZODone [TraZODone] 100 mg PO HS #30 tablet Transmission Status: Received by [facility] Rivaroxaban [Xarelto] 20 mg PO 1700 #15 tab Transmission Status: Received by [facility] Psychiatry Exam - Constitutional Vitals: Temp Pulse Resp BP Pulse Ox 97.7 F 73 14 118/72 98 01/09/19 09:00 01/09/19 09:00 01/09/19 09:00 01/09/19 09:00 01/09/19 09:00 General appearance: age & developmentally appropriate, well-groomed, well-nourished - Musculoskeletal Gait: normal Station: relaxed Strength & Tone: normal for patient - Psychiatric Patient Orientation: Yes Person, Yes Time, Yes Place, Yes Circumstance Level of alertness: Alert Behavior: calm, cooperative Psychomotor activity: Normal Eye Contact: Maintains Eye Contact Mood Description: Euthymic/stable Patient description of mood: Okay Affect description: congruent with mood, full range Speech Volume: Normal Speech pattern: normal rate, normal rhythm, normal tone, fluent, spontaneous Language & Vocabulary: consistent with education Thought Process: Linear, Goal Oriented Thought Content: No Suicidal ideation, No Homicidal ideation, No Overt delusions Perceptual Disturbances: No Auditory hallucinations, No Visual hallucinations Attention Span Ability: Capable of Focused Attention Memory Description: Grossly Intact Patient Reliability: Reliable Historian Fund of knowledge: Yes abstraction ability, Yes aware of current events Intelligence Estimate: Average Judgment: Good Insight: Full
[2019-01-09] MEDS: *HR* Rivaroxaban 10 MG TABLET PO SCH (17:12)
[2019-01-09] MEDS: traZODone 50 MG TABLET PO SCH (21:20)
[2019-01-09] MEDS: rOPINIRole 1 MG TABLET PO SCH (21:20)
[2019-01-09] MEDS: hydrOXYzine pamoate 25 MG CAPSULE PO PRN (21:20)
--- NOTE | 2019-01-10 07:46 | Psychiatry Progress Note ---
Date of Encounter: 01/08/19 Time of Encounter: 09:00 Subjective Interval history: Patient was seen on 01/08 for discharge. He was unable to go that day because he did not have a safety plan in place. Review of Systems Psychiatric: Denies: homicidal ideation, auditory hallucinations, visual hallucinations Results - Vital Signs Vital Signs: Temp Pulse Resp BP Pulse Ox 98.7 F 86 16 111/74 98 01/09/19 21:00 01/09/19 21:00 01/09/19 21:00 01/09/19 21:00 01/09/19 21:00 - Impressions ITS Impressions Chest X-Ray 01/02/19 17:57 IMPRESSION: No radiographic evidence of acute cardiopulmonary disease. D/ / Luis Croft / Luis Croft Interpreting Provider: Luis Croft Chest CTA 01/02/19 19:36 IMPRESSION: No evidence of pulmonary embolism or acute pulmonary abnormality. D/ / Rajesh Ackerman MD / Rajesh Ackerman MD Interpreting Provider: Rajesh Ackerman MD Assessment and Plan (1) Bipolar II disorder Current visit: No Status: Acute Additional Plan: Work on discharge planning. Discharge when she has a safe place to go. Continue meds. Encourage groups. Risks, benefits, side effects, alternatives discussed w/pt: Yes Patient agreeable to treatment: Yes Consult Discharge Plan - Plan Additional Instructions: The patient says at this time he would like to go to [place] so the home health care social worker is working to see if she can get this happening. He says he has burned many bridges and anger too many people in [place]. Referrals: [facility] [Outside] - 01/08/19 2:30 pm (Please contact the clinic at the number above to schedule a follow-up appointment with Abby Whatley. Please continue attending groups on January 08 at 2:30 and January 15 at 2:30.) Prescriptions: Ranitidine HCl [Acid Customer Program Specialist] 150 mg PO BID PRN #15 tab PRN Reason: Indigestion Transmission Status: Received by [facility] Benztropine [Cogentin] 0.5 mg PO BID #30 tab Transmission Status: Received by [facility] Divalproex (12 HR) [Depakote (12 HR)] 500 mg PO QAM #15 Divalproex (12 HR) [Depakote (12 HR)] 1,000 mg PO HS #30 Doxepin HCl 50 mg PO HS #15 Venlafaxine XR (24 HR) [Effexor XR] 75 mg PO DAILY #15 cap.er.24h Transmission Status: Received by [facility] Lisinopril 30 mg PO DAILY #15 tab Transmission Status: Received by [facility] Prazosin [Minipress] 1 mg PO HS #15 capsule Transmission Status: Received by [facility] Pantoprazole Sodium [Protonix] 40 mg PO QAM #15 Albuterol Sulfate [Proventil Inhaler] 2 puff IH Q4HR PRN #1 PRN Reason: Shortness Of Breath rOPINIRole [Requip] 1 mg PO HS #15 tab Transmission Status: Received by [facility] traZODone [TraZODone] 100 mg PO HS #30 tablet Transmission Status: Received by [facility] Rivaroxaban [Xarelto] 20 mg PO 1700 #15 tab Transmission Status: Received by [facility] Psychiatry Exam - Constitutional Vitals: Temp Pulse Resp BP Pulse Ox 98.7 F 86 16 111/74 98 01/09/19 21:00 01/09/19 21:00 01/09/19 21:00 01/09/19 21:00 01/09/19 21:00 General appearance: age & developmentally appropriate, well-groomed, well- nourished - Musculoskeletal Gait: normal Station: relaxed Strength & Tone: normal for patient - Psychiatric Patient Orientation: Yes Person, Yes Time, Yes Place Level of alertness: Alert Behavior: calm, cooperative Psychomotor activity: Normal Eye Contact: Maintains Eye Contact Mood Description: Euthymic/stable Affect description: congruent with mood, full range Speech Volume: Normal Speech pattern: normal rate, normal rhythm, normal tone, fluent, spontaneous Language & Vocabulary: consistent with education Thought Process: Linear, Goal Oriented Thought Content: No Suicidal ideation, No Homicidal ideation, No Overt delusions Perceptual Disturbances: No Auditory hallucinations, No Visual hallucinations Attention Span Ability: Capable of Focused Attention Memory Description: Grossly Intact Patient Reliability: Reliable Historian Fund of knowledge: Yes abstraction ability, Yes aware of current events Intelligence Estimate: Average Judgment: Limited Insight: Partial
--- NOTE | 2019-01-10 07:48 | Psychiatry Progress Note ---
Date of Encounter: 01/10/19 Time of Encounter: 07:20 Subjective Interval history: Stimulating safe discharge plan. Patient tolerated increase Effexor. Cogentin was increased to help with EPS which seemed to have been helpful. He continues to have no suicidal or homicidal thoughts, ideations, or plans. Paranoid is resolved. Review of Systems Psychiatric: Denies: homicidal ideation, auditory hallucinations, visual hallucinations Results - Vital Signs Vital Signs: Temp Pulse Resp BP Pulse Ox 98.7 F 86 16 111/74 98 01/09/19 21:00 01/09/19 21:00 01/09/19 21:00 01/09/19 21:00 01/09/19 21:00 - Impressions ITS Impressions Chest X-Ray 01/02/19 17:57 IMPRESSION: No radiographic evidence of acute cardiopulmonary disease. D/ / Luis Croft / Luis Croft Interpreting Provider: Luis Croft Chest CTA 01/02/19 19:36 IMPRESSION: No evidence of pulmonary embolism or acute pulmonary abnormality. D/ / Rajesh Ackerman MD / Rajesh Ackerman MD Interpreting Provider: Rajesh Ackerman MD Assessment and Plan (1) Bipolar II disorder Current visit: No Status: Acute Plan: Continue hospitalization, Close observation, Suicide Precautions per unit protocol, Encourage participation in unit milieu, Group Therapy, Monitor sleep, Monitor appetite Additional Plan: Discharge once we have a safety plan in place. Risks, benefits, side effects, alternatives discussed w/pt: Yes Patient agreeable to treatment: Yes Consult Discharge Plan - Plan Additional Instructions: The patient says at this time he would like to go to [place] so the manager social is working to see if she can get this happening. He says he has burned many bridges and anger too many people in [place]. Referrals: [facility] [Outside] - 01/08/19 2:30 pm (Please contact the clinic at the number above to schedule a follow-up appointment with Abby Whatley. Please continue attending groups on January 08 at 2:30 and January 15 at 2:30.) Prescriptions: Ranitidine HCl [Acid Fertilizer Mixer] 150 mg PO BID PRN #15 tab PRN Reason: Indigestion Transmission Status: Received by [facility] Benztropine [Cogentin] 0.5 mg PO BID #30 tab Transmission Status: Received by [facility] Divalproex (12 HR) [Depakote (12 HR)] 500 mg PO QAM #15 Divalproex (12 HR) [Depakote (12 HR)] 1,000 mg PO HS #30 Doxepin HCl 50 mg PO HS #15 Venlafaxine XR (24 HR) [Effexor XR] 75 mg PO DAILY #15 cap.er.24h Transmission Status: Received by [facility] Lisinopril 30 mg PO DAILY #15 tab Transmission Status: Received by [facility] Prazosin [Minipress] 1 mg PO HS #15 capsule Transmission Status: Received by [facility] Pantoprazole Sodium [Protonix] 40 mg PO QAM #15 Albuterol Sulfate [Proventil Inhaler] 2 puff IH Q4HR PRN #1 PRN Reason: Shortness Of Breath rOPINIRole [Requip] 1 mg PO HS #15 tab Transmission Status: Received by [facility] traZODone [TraZODone] 100 mg PO HS #30 tablet Transmission Status: Received by [facility] Rivaroxaban [Xarelto] 20 mg PO 1700 #15 tab Transmission Status: Received by [facility] Psychiatry Exam - Constitutional Vitals: Temp Pulse Resp BP Pulse Ox 98.7 F 86 16 111/74 98 01/09/19 21:00 01/09/19 21:00 01/09/19 21:00 01/09/19 21:00 01/09/19 21:00 General appearance: age & developmentally appropriate, well-groomed, well- nourished - Musculoskeletal Gait: normal Station: relaxed Strength & Tone: normal for patient - Psychiatric Patient Orientation: Yes Person, Yes Time, Yes Place Level of alertness: Alert Behavior: calm, cooperative Psychomotor activity: Normal Eye Contact: Maintains Eye Contact Mood Description: Euthymic/stable Affect description: congruent with mood, full range Speech Volume: Normal Speech pattern: normal rate, normal rhythm, normal tone, fluent, spontaneous Language & Vocabulary: consistent with education Thought Process: Linear, Goal Oriented Thought Content: No Suicidal ideation, No Homicidal ideation, No Overt delusions Perceptual Disturbances: No Auditory hallucinations, No Visual hallucinations Attention Span Ability: Capable of Focused Attention Memory Description: Grossly Intact Patient Reliability: Reliable Historian Fund of knowledge: Yes abstraction ability, Yes aware of current events Intelligence Estimate: Average Judgment: Limited Insight: Partial
[2019-01-10] MEDS: Gabapentin 300 MG CAPSULE PO SCH ×3 (08:59→21:23)
[2019-01-10] MEDS: Lisinopril 20 MG TABLET PO SCH (08:59)
[2019-01-10] MEDS: Divalproex (12 HR) 500 MG TABLET PO SCH ×2 (09:00→21:24)
[2019-01-10] MEDS: Venlafaxine XR (24 HR) 75 MG CAP.ER.24H PO SCH (09:00)
[2019-01-10] MEDS: Nicotine 2 MG GUM BC PRN ×4 (09:49→23:37)
[2019-01-10] MEDS: *HR* Rivaroxaban 10 MG TABLET PO SCH (17:00)
[2019-01-10] MEDS: traZODone 50 MG TABLET PO SCH (21:23)
[2019-01-10] MEDS: rOPINIRole 1 MG TABLET PO SCH (21:23)
[2019-01-11] MEDS: Nicotine 2 MG GUM BC PRN (02:09)
[2019-01-11] MEDS: Lisinopril 20 MG TABLET PO SCH (08:45)
[2019-01-11] MEDS: Venlafaxine XR (24 HR) 75 MG CAP.ER.24H PO SCH (08:45)
[2019-01-11] MEDS: Gabapentin 300 MG CAPSULE PO SCH (08:45)
[2019-01-11] MEDS: Divalproex (12 HR) 500 MG TABLET PO SCH (08:46)
[2019-01-11 09:47] VITALS: BP 132/77
--- NOTE | 2019-01-11 11:21 | Discharge Summary ---
Date of Encounter: 01/11/19 Time of Encounter: 11:17 Diagnosis - Discharge Diagnosis (1) Bipolar II disorder Status: Acute Medications - Discharge Medications Prescriptions: Ranitidine HCl [Acid Section Hand] 150 mg PO BID PRN #15 tab PRN Reason: Indigestion Transmission Status: Received by [facility] Benztropine [Cogentin] 0.5 mg PO BID #30 tab Transmission Status: Received by [facility] Divalproex (12 HR) [Depakote (12 HR)] 500 mg PO QAM #15 Divalproex (12 HR) [Depakote (12 HR)] 1,000 mg PO HS #30 Doxepin HCl 50 mg PO HS #15 Venlafaxine XR (24 HR) [Effexor XR] 75 mg PO DAILY #15 cap.er.24h Transmission Status: Received by [facility] Lisinopril 30 mg PO DAILY #15 tab Transmission Status: Received by [facility] Prazosin [Minipress] 1 mg PO HS #15 capsule Transmission Status: Received by [facility] Pantoprazole Sodium [Protonix] 40 mg PO QAM #15 Albuterol Sulfate [Proventil Inhaler] 2 puff IH Q4HR PRN #1 PRN Reason: Shortness Of Breath rOPINIRole [Requip] 1 mg PO HS #15 tab Transmission Status: Received by [facility] traZODone [TraZODone] 100 mg PO HS #30 tablet Transmission Status: Received by [facility] Rivaroxaban [Xarelto] 20 mg PO 1700 #15 tab Transmission Status: Received by [facility] Gabapentin [Neurontin] 300 mg PO TID 01/02/19 [History] Albuterol Sulfate [Proventil Inhaler] 2 puff IH Q4HR PRN #1 01/08/19 [Rx] Benztropine [Cogentin] 0.5 mg PO BID #30 tab 01/08/19 [Rx] Divalproex (12 HR) [Depakote (12 HR)] 1,000 mg PO HS #30 01/08/19 [Rx] Divalproex (12 HR) [Depakote (12 HR)] 500 mg PO QAM #15 01/08/19 [Rx] Doxepin HCl 50 mg PO HS #15 01/08/19 [Rx] Lisinopril 30 mg PO DAILY #15 tab 01/08/19 [Rx] Pantoprazole Sodium [Protonix] 40 mg PO QAM #15 01/08/19 [Rx] Prazosin [Minipress] 1 mg PO HS #15 capsule 01/08/19 [Rx] Ranitidine HCl [Acid Section Hand] 150 mg PO BID PRN #15 tab 01/08/19 [Rx] Rivaroxaban [Xarelto] 20 mg PO 1700 #15 tab 01/08/19 [Rx] Venlafaxine XR (24 HR) [Effexor XR] 75 mg PO DAILY #15 cap.er.24h 01/08/19 [Rx] rOPINIRole [Requip] 1 mg PO HS #15 tab 01/08/19 [Rx] traZODone [TraZODone] 100 mg PO HS #30 tablet 01/08/19 [Rx] Allergy/AdvReac Type Severity Reaction Status Date / Time haloperidol [From Haldol] Allergy See Verified 01/02/19 17:54 Comments quetiapine [From Seroquel] Allergy Swelling Verified 01/02/19 17:54 of Lip/Tongue/Throat vancomycin Allergy Anaphylaxis Verified 01/02/19 17:54 SOLUMEDROL Allergy Anaphylaxis Uncoded 12/21/18 01:29 Results Procedures and tests throughout hospitalization: Completed Lab Orders Category Date Time Status Acetaminophen Stat Lab 01/02/19 18:08 Completed Basic Metabolic Panel Stat Lab 01/02/19 18:08 Completed Complete Blood Count [HEME] Stat Lab 01/02/19 18:08 Completed Drug Screen, Urine [UCHEM] Stat Lab 01/02/19 18:05 Completed Ethanol Stat Lab 01/02/19 18:08 Completed Hgb A1C Routine Lab 01/04/19 10:26 Completed Lipid Panel Routine Lab 01/04/19 10:26 Completed Salicylate Stat Lab 01/02/19 18:08 Completed Troponin I Stat Lab 01/02/19 18:08 Completed Urinalysis reflex Microscopic [URIN] Stat Lab 01/02/19 18:05 Completed Valproate Stat Lab 01/02/19 18:08 Completed Completed Imaging Orders Category Date Time Status CTA chest [CT angio chest] [CT] Stat Cat Scan 01/02/19 19:36 Completed XR chest 1V portable [XR] Stat Exams 01/02/19 17:57 Completed Provider Date of admission: 01/03/19 17:10 Primary care physician: PCP NONE Discharging clinician: Holli Jones Psychiatry Exam - Constitutional Vitals: Temp Pulse Resp BP Pulse Ox 98.1 F 91 16 132/77 98 01/11/19 09:00 01/11/19 09:00 01/11/19 09:00 01/11/19 09:00 01/11/19 09:00 General appearance: age & developmentally appropriate, well-groomed, well- nourished - Musculoskeletal Gait: normal Station: relaxed Strength & Tone: normal for patient - Psychiatric Patient Orientation: Yes Person, Yes Time, Yes Place Level of alertness: Alert Behavior: calm, cooperative Psychomotor activity: Normal Eye Contact: Maintains Eye Contact Mood Description: Euthymic/stable Affect description: congruent with mood, full range Speech Volume: Normal Speech pattern: normal rate, normal rhythm, normal tone, fluent, spontaneous Language & Vocabulary: consistent with education Thought Process: Linear, Goal Oriented Thought Content: No Suicidal ideation, No Homicidal ideation, No Overt delusions Perceptual Disturbances: No Auditory hallucinations, No Visual hallucinations Attention Span Ability: Capable of Focused Attention Memory Description: Grossly Intact Patient Reliability: Questionable Historian Fund of knowledge: Yes abstraction ability, Yes aware of current events Intelligence Estimate: Average Judgment: Limited Insight: Partial Hospital Course Hospital course: Mr. Lee is a 38 year old male who was admitted for SI and paranoia in the context of meth use. Client has had multiple inpatient admissions recently. His last one was at [facility] and they declined to take him back this time due to a suspicion he is malingering and due to concerns he was selling his benzodiazepines. Client agreed to go to the [facility] for treatment of his drug addictions this admission. He has been ready for discharge since last week. The [facility] has bed availability for him today. On eval client is alert, oriented, and feels ready to go. He is denying any further SI/HI/AH/VH. He denies having any questions or concerns and states he wants to engage in the AOD treatment. Total time spent with client greater than 30 minutes. Patient was educated of his diagnosis and the risks, benefits, and side effects of this treatment and alternative treatment options and was monitored for responsiveness and side effects. Mood, anxiety, sleep, appetite, and interest improved, as did future orientation. Self-harm thoughts subsided, thinking cleared, psychosis resolved, and mood stabilized. Patient was able to attend both individual and group therapy sessions as well as meeting with the psychiatrist daily and urged to discuss any medication or treatment issues or other concerns. The patient was educated primarily by verbal means about their diagnosis and manifestations in their life. The option for treatment including group and individual therapy programming was offered to the patient in the use of medications with all their potential risks, benefits, and side effects were discussed with the patient at length. The patient was given the opportunity to ask questions and was noted to participate in the treatment in the planning process. The patient felt ready and eager to be discharged from the inpatient psychiatric unit to continue on with treatment as an outpatient. The patient agreed that he is safe for this disposition. The patient was considered to be able to participate in informed consent and decision making with respect to medical, legal, and financial issues of the time of discharge. At the time of discharge the patient adamantly denied any concerns for lethality including suicidal or homicidal thoughts ideations or plans and was future oriented toward ongoing mental health care, medical follow-up and sobriety. - Time Spent with Patient Total time spent providing and/or coordinating discharge services: Greater than 30 minutes Assessment and Plan - Patient/Caregiver Discharge Instructions Activity: resume usual activities as tolerated Diet: diabetic diet Additional Instructions: The patient has been accepted at the [facility] and will attend the milieu and will be scheduled for mental health services by [facility] staff in accordance to program specifications. - Follow up Plan Follow up with: The [facility] [Other] (You have been accepted at the [facility] for substance abuse treatment program.) Functional capacity at discharge: independent ambulation Overall status at discharge: Stable Disposition: Transfer Inpatient Rehab Fac Quality - Multiple Antipsychotics Patient discharged on 2 or more antipsychotic medications: No Procedures - Procedures Procedures: Medication Management, Crisis Stabilization, Supportive Therapy, Group Therapy
== END 2019-01-11 09:22 | DRG 753 ==
LOC: EMEROOARM 17:51 → 1ANU 01-03 17:10
PROVIDERS: ADMIT Psychiatry & Neurology Psychiatry; ATTEND Psychiatry & Neurology Psychiatry

== ENCOUNTER 2019-01-11 20:36 | Observation (INO) ==
--- NOTE | 2019-01-11 21:36 | Emergency Department Note ---
Disposition Clinical Impression: ACS (acute coronary syndrome) Anemia Qualifiers: Anemia type: unspecified type Qualified Code(s): D64.9 - Anemia, unspecified Disposition: Admitted As Inpatient Condition: Fair Referrals: Alysa Chowdary [Primary Care Provider] - Forms: ED Satisfaction Letter Time of Disposition: 22:42 General Adult HPI - General Chief complaint: ED Chest Pain Stated complaint: Chest Pain Time Seen by Provider: 01/11/19 21:01 Source: patient Limitations: no limitations Nursing Notes Reviewed: Yes Vital Signs Reviewed: Yes - History of Present Illness HPI Narrative: Patient presents with chest pain which began at 8:00 tonight and he feels that it is a pressure sensation with radiation up to the left collarbone. He does have associated dyspnea but no diaphoresis. No pleuritic aspect. No pain or swelling of the lower extremities. Last use of methamphetamine was 2 weeks ago. I did review the previous records. He was just discharged from the hospital to day from the psychiatric services. He denies any suicidal ideation currently. Family history: Negative for heart disease. Social history: Smoker, has not drank alcohol in several months Pain Scale: 8 - Related Data Home Medications Medication Instructions Recorded Confirmed Gabapentin [Neurontin] 300 mg PO TID 01/02/19 01/11/19 Previous Rx's Medication Instructions Recorded Albuterol Sulfate [Proventil 2 puff IH Q4HR PRN #1 01/08/19 Inhaler] Benztropine [Cogentin] 0.5 mg PO BID #30 tab 01/08/19 Divalproex (12 HR) [Depakote (12 1,000 mg PO HS #30 01/08/19 HR)] Divalproex (12 HR) [Depakote (12 500 mg PO QAM #15 01/08/19 HR)] Doxepin HCl 50 mg PO HS #15 01/08/19 Lisinopril 30 mg PO DAILY #15 tab 01/08/19 Pantoprazole Sodium [Protonix] 40 mg PO QAM #15 01/08/19 Prazosin [Minipress] 1 mg PO HS #15 capsule 01/08/19 Ranitidine HCl [Acid Bench Press Operator] 150 mg PO BID PRN #15 tab 01/08/19 Rivaroxaban [Xarelto] 20 mg PO 1700 #15 tab 01/08/19 Venlafaxine XR (24 HR) [Effexor XR] 75 mg PO DAILY #15 cap.er.24h 01/08/19 rOPINIRole [Requip] 1 mg PO HS #15 tab 01/08/19 traZODone [TraZODone] 100 mg PO HS #30 tablet 01/08/19 Allergies Allergy/AdvReac Type Severity Reaction Status Date / Time haloperidol [From Haldol] Allergy See Verified 01/11/19 20:42 Comments quetiapine [From Seroquel] Allergy Swelling Verified 01/11/19 20:42 of Lip/Tongue/Throat vancomycin Allergy Anaphylaxis Verified 01/11/19 20:42 SOLUMEDROL Allergy Anaphylaxis Uncoded 01/11/19 20:42 All systems ED: reviewed and negative except as stated. Past Medical History - Past Medical History Medical history: Reports: cardiomyopathy, CHF, DVT, hyperlipidemia, hypertension, IV drug use, kidney stones, pulmonary embolus, other Surgical history: Reports: pacemaker/AICD, other Psychiatric history: Reports: bipolar, PTSD, prior suicide attempt, previous psychiatric hospitalization - Social History Smoking Status: Current every day smoker Smokeless Tobacco Status: No Alcohol use: Reports: none Drug use: Reports: cocaine, opiates, marijuana, methamphetamine, other Physical Exam CONSTITUTIONAL: Well-appearing; well-nourished; A&O X 3, in no apparent distress HEAD: Normocephalic; atraumatic EYES: PERRL, no scleral icterus NOSE: The nose is normal in appearance without rhinorrhea NECK: No JVD or distended neck veins RESP: Normal chest excursion with respiration; breath sounds clear and equal bilaterally; no wheezes, rhonchi, or rales CARD: Regular rhythm, without murmurs, rub or gallop ABD: Non-distended; non-tender, soft, without rigidity, rebound or guarding,no pulsatile mass CHEST: No pain with palpation, does have pacemaker in place left anterior chest wall with no overlying erythema SKIN: Normal for age and race; warm and dry without diaphoresis ; no apparent lesions EXTREMITIES: Pulses are 2 plus and equal times 4 extremities, no peripheral edema or calf muscle pain - General Limitations: no limitations General appearance: alert Course Vital Signs Temperature 98.8 F 01/11/19 20:42 Pulse Rate 103 01/11/19 20:42 Respiratory Rate 18 01/11/19 20:42 Blood Pressure 153/83 01/11/19 20:42 O2 Sat by Pulse Oximetry 99 01/11/19 20:42 Temperature 98.8 F 01/11/19 20:42 Pulse Rate 103 01/11/19 20:42 Respiratory Rate 18 01/11/19 20:42 Blood Pressure 153/83 01/11/19 20:42 O2 Sat by Pulse Oximetry 100 01/11/19 21:26 Oxygen Delivery Oxygen Delivery Room Air Medical Decision Making - MDM Narrative Medical decision making narrative: I did review the patient's EKG showing normal sinus rhythm with a rate of 99 without acute ischemic change and I did compared to previous EKG which was done on January 02 of this year which is almost identical in appearance and the pat ient does have labs ordered including troponin and a chest x-ray. He has been evaluated in the past for similar problems. Results pending. We will watch closely here on the monitor. 2136 I did review the patient's past records in the last 5 years he has had between 30 and 40 troponin test that of all been negative. He did have an echocardiogram just in May of this year which showed ejection fraction of 70% normal wall motion so at this point the patient does not seem to have congestive heart failure. His EKG was normal with significant pain. Today and in addition to that he will have a second EKG done. Initial troponin is pending. Pain started at 8 so repeat troponin will be done at 1:00 and if negative the patient will be discharged for further outpatient follow-up. This is not pleuritic. There is no history of pain or swelling of the lower extremities at this time. On my exam no pain or swelling or asymmetry of the lower extremities and I do not suspect pulmonary embolism today. 2147 I did repeat the EKG and this was done at 9:57 PM and at this point there is some evolution with some hyperacute T waves as well as minimal elevation of the ST segments anterior and laterally and for this reason the patient will be admitted. I did speak with the hospitalist. He would like to wait for the CBC and metabolic profile to return and we will certainly do that. Will also contact cardio 2222. I did speak with Dr. Urrutia the shipfitters supervisor who did look at the first EKG and second EKG and agrees the patient definitely needs to be admitted and recommends nitroglycerin sublingual and nitroglycerin drip. I did confirm the patient has taken his arrival to [facility] so we will not do heparin at this time. The patient will have the troponin repeated and trended and further inpatient care can be coordinated with the hospitalist and the airplane engineer. 2240 I did speak with the hospitalist who accepts the patient for admission [id number] - Medical Records Medical records reviewed: Yes I reviewed the patient's medical records. - Lab Data Lab results reviewed: Yes I reviewed the patient's lab results. Result diagrams: 01/11/19 21:14 01/11/19 21:14 Lab Results 01/11/19 01/11/19 Range/Units 21:14 21:14 WBC 6.3 (4.3-11.1) K/mcL RBC 3.55 L (4.19-5.50) M/mcL Hgb 11.2 L (12.9-16.9) g/dL Hct 32.3 L (37.5-50.1) % MCV 91.0 (83.0-100.0) fL MCH 31.5 (28.0-33.3) pg MCHC 34.7 (31.6-35.5) g/dL RDW 13.3 (11.5-14.5) % Plt Count 280 (140-400) K/mcL MPV 10.2 (9.4-12.4) fL Sodium 140 (136-145) mEq/L Potassium 3.9 (3.5-5.1) mEq/L Chloride 107 (98-107) mEq/L Carbon Dioxide 24 (23-29) mEq/L BUN 14 (6-20) mg/dL Creatinine 0.77 (0.70-1.30) mg/dL Est GFR ( Amer) > 60 (> 60) Est GFR (Non-Af Amer) > 60 (> 60) BUN/Creatinine Ratio 18 (6-26) Glucose 105 (70-105) mg/dL Calculated Osmolality 291 (280-300) Calcium 8.8 (8.6-10.3) mg/dL Troponin I < 0.03 (< 0.04) ng/mL - Radiology Data Radiology results reviewed: Yes I reviewed the patient's radiology results.
[2019-01-11 22:02] LABS: Troponin I < 0.03 ng/mL (< 0.04)
[2019-01-11 22:28] LABS: Hematocrit 32.3 % (37.5-50.1); Hemoglobin 11.2 g/dL (12.9-16.9); Mean Corpuscular HGB Conc 34.7 g/dL (31.6-35.5); Mean Corpuscular Hemoglobin 31.5 pg (28.0-33.3); Mean Platelet Volume 10.2 fL (9.4-12.4); Platelet Count 280 K/mcL (140-400); Red Blood Count 3.55 M/mcL (4.19-5.50); Red Cell Distribution Width 13.3 % (11.5-14.5); White Blood Count 6.3 K/mcL (4.3-11.1)
[2019-01-11 22:32] LABS: BUN/Creatinine Ratio 18 (6-26); Blood Urea Nitrogen 14 mg/dL (6-20); Calcium 8.8 mg/dL (8.6-10.3); Carbon Dioxide 24 mEq/L (23-29); Chloride 107 mEq/L (98-107); Glucose 105 mg/dL (70-105); Osmolality,Calculated 291 (280-300); Potassium 3.9 mEq/L (3.5-5.1); Sodium 140 mEq/L (136-145); eGFR For African Americans > 60 (> 60); eGFR For Non-African Americans > 60 (> 60)
[2019-01-11] MEDS ORDERED: Nitroglycerin 0.4 MG TAB.SUBL SL PRN (22:34)
[2019-01-11] MEDS ORDERED: Nitroglycerin 25 MG/250 ML INFUS..BTL IVC SCH (22:45)
[2019-01-11] MEDS: Nitroglycerin 25 MG/250 ML INFUS..BTL IVC SCH (23:11)
[2019-01-11] MEDS ORDERED: Naloxone 0.4 MG/ML INJ IVP PRN (23:50)
--- NOTE | 2019-01-12 00:33 | Internal Med History&Physical ---
Date of Encounter: 01/11/19 Time of Encounter: 23:30 Internal Medicine - H&P: HPI Chief complaint: Chest Pain Admitted From: Home Plans for Post Hospital Care: Home History of present illness: Mr. Lee is a 38 year old male with past medical history significant for sick sinus syndrome with pacer, CHF, cardiomyopathy, hyperlipidemia, hypertension, DVT and PE on Xarelto, GERD, hiatal hernia, bipolar, PTSD, tobacco abuse, and methamphetamine abuse who presents for complaints of left sided chest pain that started with what felt like palpitations. Describes pain as pressure and rated it at 8/10 when at its worst. Pain radiated into his left jaw and left neck. Pain is associated with shortness of breath, nausea, and diaphoresis. Has had frequent chest pain in the past but states this felt different and more severe. ER reported initial EKG as sinus rhythm without acute ischemic change however repeat EKG was reported with some evolution with hyperacute T waves as well as minimal elevation of the ST segments anterior and laterally. ER spoke with operations associate Cardiology who reviewed EKG's and recommended admission with nitro drip and will see in consult. ER did not start patient on heparin drip as patient took his Xarelto earlier tonight prior to coming into the ER. ER also obtained an xray of the chest which showed no acute findings. Upon my assessment patient reports his pain is easing on nitro drip. Currently denies any headache, shortness of breath, abdominal pain, bowel or bladder changes. Patient was discharged earlier today from 1A admission for suicidal ideations and paranoia in context with methamphetamine abuse. Currently denies any suicidal or homicidal ideations. Reports last meth use around 10 days ago. Also reports daily cigarette smoking, and occasional marijuana and alcohol use. Reports following regularly with his PCP, Psychiatrist, and Ring Cutter Lathe Operator at [facility]. Also reports recently following with Urology for hematuria that has since resolved. Past Med Surg Social Fam HX - Past Medical History Medical history: cardiomyopathy, CHF, DVT, GERD, hyperlipidemia, hypertension, IV drug use, kidney stones, pulmonary embolus, other Additional medical history: PACEMAKER. SICK SINUS SYNDROME. MENIERS DISEASE. CERVICAL RIDULOPATHY. DDD, LOWER SPINE. ENLARGED PROSTATE. SWOLLEN LYMPH NODES Psychiatric history: bipolar, PTSD, prior suicide attempt, previous psychiatric hospitalization - Past Surgical History Surgical History: pacemaker/AICD, other Additional surgical history: suprapubic catheter x 3-removed. colonoscopy x 3. endoscopy. polyps removed from vocal chords. oral surgery - Social History Smoking Status: Current every day smoker Smokeless Tobacco Status: No Alcohol use: none Drug use: cocaine (history of ), opiates (history of), marijuana (recent use), methamphetamine (recent use) - Family History Father Adopted: No Living Status: Still Living Hx Family Cardiac Disorders: Yes (CAD) Hx Family Respiratory Disorders: Yes (copd) Hx Family Cancer: No Hx Family GI Disorders: No Hx Family Endocrine Disorder: Yes (DM) Hx Family Neuromuscular Disorders: No Hx Family Neurologic Disorders: No Hx Family HEENT Disorders: No Hx Family Autoimmune Disorders: No Internal Medicine - H&P: Meds Gabapentin [Neurontin] 300 mg PO TID 01/02/19 [History] Albuterol Sulfate [Proventil Inhaler] 2 puff IH Q4HR PRN #1 01/08/19 [Rx] Benztropine [Cogentin] 0.5 mg PO BID #30 tab 01/08/19 [Rx] Divalproex (12 HR) [Depakote (12 HR)] 1,000 mg PO HS #30 01/08/19 [Rx] Divalproex (12 HR) [Depakote (12 HR)] 500 mg PO QAM #15 01/08/19 [Rx] Doxepin HCl 50 mg PO HS #15 01/08/19 [Rx] Lisinopril 30 mg PO DAILY #15 tab 01/08/19 [Rx] Pantoprazole Sodium [Protonix] 40 mg PO QAM #15 01/08/19 [Rx] Prazosin [Minipress] 1 mg PO HS #15 capsule 01/08/19 [Rx] Ranitidine HCl [Acid Core Shaper Top] 150 mg PO BID PRN #15 tab 01/08/19 [Rx] Rivaroxaban [Xarelto] 20 mg PO 1700 #15 tab 01/08/19 [Rx] Venlafaxine XR (24 HR) [Effexor XR] 75 mg PO DAILY #15 cap.er.24h 01/08/19 [Rx] rOPINIRole [Requip] 1 mg PO HS #15 tab 01/08/19 [Rx] traZODone [TraZODone] 100 mg PO HS #30 tablet 01/08/19 [Rx] Allergy/AdvReac Type Severity Reaction Status Date / Time haloperidol [From Haldol] Allergy See Verified 01/11/19 20:42 Comments quetiapine [From Seroquel] Allergy Swelling Verified 01/11/19 20:42 of Lip/Tongue/Throat vancomycin Allergy Anaphylaxis Verified 01/11/19 20:42 SOLUMEDROL Allergy Anaphylaxis Uncoded 01/11/19 20:42 All Systems PM: A 10-system review of systems was performed and is negative for pertinent findings except as documented above in the HPI. - Constitutional Vitals: Temp Pulse Resp BP Pulse Ox 98.8 F 88 16 112/74 99 01/11/19 20:42 01/11/19 23:40 01/11/19 23:40 01/11/19 23:40 01/11/19 23:40 Exam: General: Alert and oriented. Calm, cooperative, in no acute distress. Skin:Normal color, no rash, no lesions. HEENT:Pupils equal, round and reactive. Cardiovascular:Normal S1 & S2, no rubs, murmurs or gallops. No JVD. Pulse regular. Lungs:Breath sounds decreased, no wheezes or crackles. Abdomen:Soft, non-tender, no rigidity. Extremities:No deformity, no edema or tenderness, no joint swelling or clubbing. Neurological:Normal cognition and motor skills. Pulses:Carotid and radial pulses normal +2. Rest of the physical exam is non contributory. Internal Med - H&P Results - Labs CBC & Chem 7: 01/11/19 21:14 01/11/19 21:14 Labs: Short CBC 01/11/19 Range/Units 21:14 WBC 6.3 (4.3-11.1) K/mcL Hgb 11.2 L (12.9-16.9) g/dL Hct 32.3 L (37.5-50.1) % Plt Count 280 (140-400) K/mcL BMP 01/11/19 21:14 Sodium 140 Potassium 3.9 Chloride 107 Carbon Dioxide 24 BUN 14 Creatinine 0.77 Glucose 105 Calcium 8.8 Cardiac Enzymes 01/11/19 Range/Units 21:14 Troponin I < 0.03 (< 0.04) ng/mL - Impressions ITS Impressions Chest X-Ray 01/11/19 21:58 IMPRESSION: No acute findings. D/ / Edin Pitts / Edin Pitts Interpreting Provider: Edin Pitts - Assessment and Plan (1) Chest pain Current Visit: No Status: Acute Assessment and plan: Presented for left sided pressure like chest pain that started with what felt like palpitations radiating into left jaw and left neck. ER reported initial EKG as sinus rhythm without acute ischemic change however repeat EKG was reported with some evolution with hyperacute T waves as well as minimal elevation of the ST segments anterior and laterally. ER spoke with operations associate Cardiology who reviewed EKG's and recommended admission with nitro drip and will see in consult, ER placed consult order. Will continue nitro drip as started by ER and recommended by Cardiology, patient reports drip is improving his pain. ER did not start patient on heparin drip as patient took his Xarelto earlier tonight prior to coming into the ER. Initial troponin in ER negative, serial troponins ordered. Continuous cardiac monitoring. Qualifiers: Chest pain type: unspecified Qualified Code(s): R07.9 - Chest pain, unspecified (2) Decreased hemoglobin Current Visit: Yes Status: Acute Assessment and plan: Hemoglobin decreased on admission at 11.2 No signs of bleeding currently. Currently on Xarelto for history of DVT and PE. Repeat labs ordered. (3) Bipolar disorder Current Visit: Yes Status: Chronic Assessment and plan: Continue home medications once verified. Qualifiers: Qualified Code(s): F31.9 - Bipolar disorder, unspecified (4) Hypertension Current Visit: Yes Status: Chronic Assessment and plan: Continue home medications once verified. Qualifiers: Hypertension type: unspecified Qualified Code(s): I10 - Essential (primary) hypertension (5) Drug abuse and dependence Current Visit: Yes Status: Chronic Assessment and plan: Cessation strongly encouraged. Continue outpatient follow up. environmental services assistant consult for any assistance needs. (6) Tobacco abuse Current Visit: Yes Status: Chronic Assessment and plan: Cessation strongly encouraged. - Time Spent With Patient Total time spent is greater than 50% in coordination of care (as documented) at patient's floor/unit and/or counseling patient:
[2019-01-12] MEDS: Divalproex (12 HR) 500 MG TABLET PO SCH ×2 (01:41→23:49)
[2019-01-12] MEDS: Gabapentin 300 MG CAPSULE PO SCH ×4 (01:41→23:50)
[2019-01-12 03:38] LABS: Hematocrit 31.3 % (37.5-50.1); Hemoglobin 10.7 g/dL (12.9-16.9); Mean Corpuscular HGB Conc 34.2 g/dL (31.6-35.5); Mean Corpuscular Hemoglobin 31.4 pg (28.0-33.3); Mean Corpuscular Volume 91.8 fL (83.0-100.0); Mean Platelet Volume 9.8 fL (9.4-12.4); Platelet Count 252 K/mcL (140-400); Red Blood Count 3.41 M/mcL (4.19-5.50); Red Cell Distribution Width 13.3 % (11.5-14.5); Segmented Neutrophils % 33.8 %; White Blood Count 6.3 K/mcL (4.3-11.1)
[2019-01-12 03:39] LABS: Basophils # 0.1 K/mcL (0.0-0.2); Basophils % 0.9 %; Eosinophils # 0.1 K/mcL (0.0-0.6); Eosinophils % 2.1 %; Immature Granulocytes % 0.5 % (0-4); Lymphocytes # 3.2 K/mcL (0.6-4.6); Monocytes # 0.7 K/mcL (0.0-1.3); Monocytes % 11.7 %; Neutrophils # 2.1 K/mcL (1.6-8.9)
[2019-01-12 03:58] LABS: BUN/Creatinine Ratio 24 (6-26); Blood Urea Nitrogen 17 mg/dL (6-20); Calcium 8.4 mg/dL (8.6-10.3); Carbon Dioxide 24 mEq/L (23-29); Chloride 107 mEq/L (98-107); Glucose 97 mg/dL (70-105); Osmolality,Calculated 291 (280-300); Potassium 3.9 mEq/L (3.5-5.1); Sodium 140 mEq/L (136-145); eGFR For African Americans > 60 (> 60); eGFR For Non-African Americans > 60 (> 60)
[2019-01-12] MEDS ORDERED: NON-FORMULARY MEDICATION 1 EACH EACH (Ranitidine Hcl [Acid Reducer] 150 MG) PO PRN (07:31)
[2019-01-12] MEDS: clonazePAM 1 MG TABLET PO SCH ×2 (08:41→23:50)
--- NOTE | 2019-01-12 08:42 | Cardiology Consult Note ---
<Patti Frausto - Last Filed: 01/12/19 13:21> Date of Encounter: 01/12/19 Time of Encounter: 10:40 Assessment and Plan (1) Atypical chest pain Current Visit: Yes Status: Acute Current chest pain is atypical. Cardiac workup is still incomplete. -Will rule out with cardiac enzymes and electrocardiogram -Plan to repeat ECG today. -Plan to repeat troponin for total of 3; previous 2 troponins have been negative -Patient is scheduled for echocardiogram at 1300 today; will await results of this -May consider stress test if echocardiogram suggests it would be useful Discussion w patient/family: The assessment and plan as outlined above was discussed with the patient and/or family members who expressed understanding and agreement. All questions were answered. Thank you for involving us in the care of your patient. Please call with any questions. History of Present Illness Consult date: 01/11/19 Requesting physician: Neri Mata Consult reason: ACS Chief complaint: Chest pain History of present illness: Mr. Lee is a 38 year old male presenting with chest pain in context of sick sinus syndrome with pacemaker, cardiomyopathy, CHF, DVT HLD, HTN, IVDA, PE, bipolar. Patient was discharged from [facility] yesterday morning, and went to stay at [facility] in [place] for treatment of drug abuse. He presented to [facility] ED last night for pressure-like, squeezing, non-pleuritic chest pain of 90 minutes' duration with shocking sensation radiating to left clavicle and neck. He denied he had ever had a sensation similar to this as his usual chest pain is sharper and he attributes it to anxiety. Chest pain was alleviated though not fully resolved with nitroglycerin. He admitted dyspnea and racing heartbeat. He denied diaphoresis, LE edema, LE pain. He is very concerned about the elevation of heart rate as he reports his baseline is near 50 bpm. He is also concerned that one of his pacemaker leads could be going bad, as he missed his last pacemaker check in August and one of his leads is original to first pacemaker placed in 2005. He reports replacement of pacemaker in 2014 with a lead replacement of RV lead in 2016. Patient reports he has not used methamphetamines for eleven days. Negative troponins x2. Initial ECG was normal. Followup ECG showed some hyperacute T waves and minimal ST elevation in anterior and lateral leads. CXR pm 01/11/19 showed no acute findings CTA chest on 01/02/19 showed no evidence of PE or acute pulmonary abnormality ECG on 01/02/19 showed sinus rhythm and left atrial enlargement. Neck CTA on 06/29/18 showed no acute intracranial abnormality, no flow-limiting stenosis of major arteries in head or neck Echocardiogram on 06/21/2018 showed LVEF 70%, normal LV chamber size/wall thickness/function, normal LV diastolic function, normal RV structure and function, mild TR, no pulmonary HTN TTE and 12-lead ECG ordered and pending. Troponins are trending. Hospital medications include nitroglycerin sublingual and drip, Prazosin, Xarelto Past Med Surg Social Fam HX - Past Medical History Medical history: cardiomyopathy, CHF, DVT, GERD, hyperlipidemia, hypertension, IV drug use, kidney stones, pulmonary embolus, other Additional medical history: PACEMAKER. SICK SINUS SYNDROME. MENIERS DISEASE. CERVICAL RIDULOPATHY. DDD, LOWER SPINE. ENLARGED PROSTATE. SWOLLEN LYMPH NODES Psychiatric history: bipolar, PTSD, prior suicide attempt, previous psychiatric hospitalization - Past Surgical History Surgical History: pacemaker/AICD, other Additional surgical history: suprapubic catheter x 3-removed. colonoscopy x 3. endoscopy. polyps removed from vocal chords. oral surgery - Social History Smoking Status: Current every day smoker Packs per day: 1.5 per day Smokeless Tobacco Status: Yes (dip) Alcohol use: rarely Drug use: cocaine (history of ), opiates (history of), marijuana (recent use), methamphetamine (recent use) - Family History Father Adopted: No Living Status: Still Living Hx Family Cardiac Disorders: Yes (CAD) Hx Family Respiratory Disorders: Yes (copd) Hx Family Cancer: No Hx Family GI Disorders: No Hx Family Endocrine Disorder: Yes (DM) Hx Family Neuromuscular Disorders: No Hx Family Neurologic Disorders: No Hx Family HEENT Disorders: No Hx Family Autoimmune Disorders: No Medications and Allergies Gabapentin [Neurontin] 300 mg PO TID 01/02/19 [History] Albuterol Sulfate [Proventil Inhaler] 2 puff IH Q4HR PRN #1 01/08/19 [Rx] Divalproex (12 HR) [Depakote (12 HR)] 1,000 mg PO HS #30 01/08/19 [Rx] Divalproex (12 HR) [Depakote (12 HR)] 500 mg PO QAM #15 01/08/19 [Rx] Doxepin HCl 50 mg PO HS #15 01/08/19 [Rx] Lisinopril 30 mg PO DAILY #15 tab 01/08/19 [Rx] Pantoprazole Sodium [Protonix] 40 mg PO QAM #15 01/08/19 [Rx] Prazosin [Minipress] 1 mg PO HS #15 capsule 01/08/19 [Rx] Ranitidine HCl [Acid Commercial Insurance Underwriter] 150 mg PO BID PRN #15 tab 01/08/19 [Rx] Rivaroxaban [Xarelto] 20 mg PO 1700 #15 tab 01/08/19 [Rx] rOPINIRole [Requip] 1 mg PO HS #15 tab 01/08/19 [Rx] traZODone [TraZODone] 100 mg PO HS #30 tablet 01/08/19 [Rx] Acetaminophen [Tylenol] 1,000 mg PO TID 01/12/19 [History] Benztropine [Cogentin] 1 mg PO BID 01/12/19 [History] clonazePAM [Klonopin] 1 mg PO BID 01/12/19 [History] Allergy/AdvReac Type Severity Reaction Status Date / Time haloperidol [From Haldol] Allergy See Verified 01/11/19 20:42 Comments quetiapine [From Seroquel] Allergy Swelling Verified 01/11/19 20:42 of Lip/Tongue/Throat vancomycin Allergy Anaphylaxis Verified 01/11/19 20:42 SOLUMEDROL Allergy Anaphylaxis Uncoded 01/11/19 20:42 All Systems Review: The remainder of the systems were reviewed and are negative - Constitutional Constitutional: fatigue, no weakness - EENT Eyes: no blurred vision - Cardiovascular Cardiovascular: chest pain at rest, dyspnea at rest, radiating jaw, neck or arm pain, lightheadedness, rapid heart rate, no diaphoresis, no leg edema - Respiratory Respiratory: dyspnea - Gastrointestinal Gastrointestinal: constipation, diarrhea, melena, nausea - Genitourinary Genitourinary: dysuria, hematuria - Musculoskeletal Musculoskeletal: no muscle cramps - Neurological Neurological: dizziness, tingling, no loss of vision - Psychiatric Psychiatric: anxiety Physical Examination Vital Signs, Last 4 Hours Temp Pulse Resp BP Pulse Ox 01/12/19 06:41 98.0 F 62 15 108/64 96 01/12/19 05:22 106/66 01/12/19 05:07 104/62 Other: GENERAL: patient is anxious-appearing, sitting on side of bed. Answers questions appropriately EYES: anicteric, clear sclerae. Pupils equal and reactive to light bilaterally HENT: atraumatic, normocephalic. Moist mucosa NECK: normal carotid pulses, supple CV: regular rate and rhythm, no murmurs, clicks, or gallops RESPIRATORY: clear to auscultation bilaterally. No wheezes, rhonchi, or rales ABDOMEN: mild tenderness over bladder. Otherwise abdomen nontender. Nondistended, soft. Normal bowel sounds heard. EXTREMITIES: no edema or cyanosis. Warm, dry. Capillary refill <2 sec. Peripheral pulses 2+/4 Results 01/12/19 03:17 01/12/19 03:17 Lab Results 01/11/19 01/11/19 01/12/19 21:14 21:14 03:17 WBC 6.3 Hgb 11.2 L Hct 32.3 L Plt Count 280 Sodium 140 Potassium 3.9 Chloride 107 Carbon Dioxide 24 BUN 14 Creatinine 0.77 Glucose 105 Calcium 8.8 Troponin I < 0.03 < 0.03 01/12/19 01/12/19 03:17 03:17 WBC 6.3 Hgb 10.7 L Hct 31.3 L Plt Count 252 Sodium 140 Potassium 3.9 Chloride 107 Carbon Dioxide 24 BUN 17 Creatinine 0.70 Glucose 97 Calcium 8.4 L Troponin I Consult Discharge Plan - Plan Referrals: Alysa Chowdary [Primary Care Provider] - 01/22/19 10:00 am (Please follow up as schedule....) <Socrates Marrouqin - Last Filed: 01/12/19 17:01> Date of Encounter: 01/12/19 - Attending Attestation I examined this patient and my medical decision-making was reviewed with the Resident Physician. I agree with the documented findings, disposition and treatment plan as described except to the extent set forth below. Presents with chest pain that is atypical for angina. It is persistent for many hours with negative cardiac enzymes and positional in nature. Echo normal, no further cardiac testing is needed at this time. Assessment and Plan Discussion w patient/family: The assessment and plan as outlined above was discussed with the patient and/or family members who expressed understanding and agreement. All questions were answered. Thank you for involving us in the care of your patient. Please call with any questions. History of Present Illness History of present illness: Mr. Lee is a 38 year old male All Systems Review: The remainder of the systems were reviewed and are negative Physical Examination Vital Signs, Last 4 Hours Temp Pulse Resp BP Pulse Ox 01/12/19 15:06 98.1 F 88 16 122/76 98 Results 01/12/19 03:17 01/12/19 03:17 Lab Results 01/11/19 01/11/19 01/12/19 21:14 21:14 03:17 WBC 6.3 Hgb 11.2 L Hct 32.3 L Plt Count 280 Sodium 140 Potassium 3.9 Chloride 107 Carbon Dioxide 24 BUN 14 Creatinine 0.77 Glucose 105 Calcium 8.8 Troponin I < 0.03 < 0.03 01/12/19 01/12/19 01/12/19 03:17 03:17 12:38 WBC 6.3 Hgb 10.7 L Hct 31.3 L Plt Count 252 Sodium 140 Potassium 3.9 Chloride 107 Carbon Dioxide 24 BUN 17 Creatinine 0.70 Glucose 97 Calcium 8.4 L Troponin I < 0.03
[2019-01-12] MEDS ORDERED: LISINOPRIL 30 MG PO SCH (09:00)
[2019-01-12] MEDS ORDERED: Ondansetron 4 MG/2 ML VIAL IVP PRN (09:15)
--- NOTE | 2019-01-12 12:59 | Internal Med Progress Note ---
Hospitalist Progress Note - Encounter Date of Encounter: 01/12/19 Time of Encounter: 09:35 - Subjective Interval History: Patient was seen at bedside. Endorses a history of left-sided chest pain which has been improving since the admission. Denies nausea, vomiting, shortness of breath, diaphoresis. Currently not on heparin drip. Cardiology on board. - Exam Vitals: Temp Pulse Resp BP Pulse Ox 97.6 F 68 16 110/60 98 01/12/19 10:40 01/12/19 10:40 01/12/19 10:40 01/12/19 10:40 01/12/19 10:40 Exam: General: Alert and oriented, no physical distress, able to follow commands. HEENT: No thyromegaly, no lymphadenopathy, no discharge. Eyes: No discharge. Normal conjuctiva, no icterus Respiratory: Normal vesicular breathing, no added sounds, breathing equal in both sides. CVS: Normal heart sounds, no murmurs, regular rhthm, no edema Extremities: No peripheral edema, peripheral pulses intact. Lymph nodes: No lymphadenopathy Gastrointestinal: Soft, nontender abdomen, normal abdominal sounds. No distention noted. Genitourinary: No paravertebral tenderness. Skin: No rash, ulcers or wound. Neurological: Alert and oriented. No focal deficits. Cranial nerves II-XII intact. - Assessment and Plan (1) Chest pain Current Visit: No Status: Acute Assessment and Plan: Presented with a left-sided pressure which was radiating to the left chest and left neck. Initial EKG showed sinus rhythm without ischemic changes but repeat EKG was concerning for hyperacute T wasves as well as minimal elevation of ST segments anteriorly and laterally. Patient was started on nitro drip with some relief. Not on heparin drip because he took xarelto last nigth. Troponin Negative twice. Most recent echo from 06/22/2018 showed normal ejection fraction with mild tricuspid regurgitation and no pulmonary hypertension. Limited echo has been ordered. Cardiology on board. (2) Decreased hemoglobin Current Visit: Yes Status: Acute Assessment and Plan: Hemoglobin decreased on admission at 11.2, now 10.71. No signs of bleeding currently. Patient is hemodynamically stable. Denies dizziness. Currently on Xarelto for history of DVT and PE. Continue to monitor. (3) Bipolar disorder Current Visit: Yes Status: Chronic Assessment and Plan: Continue Depakote, trazodone, ropinirole. (4) Hypertension Current Visit: Yes Status: Chronic Assessment and Plan: Blood pressure slightly on the lower side. likely because of the nitro drip. Hold lisinopril. (5) Drug abuse and dependence Current Visit: Yes Status: Chronic Assessment and Plan: Cessation strongly encouraged. Continue outpatient follow up. bibliographic services specialist consult for any assistance needs. Resources have been provided. (6) Tobacco abuse Current Visit: Yes Status: Chronic Assessment and Plan: Cessation strongly encouraged. - Time Spent with Patient Total time spent is greater than 50% in coordination of care (as documented) at patient's floor/unit and/or counseling patient: Internal Medicine: Result - Labs CBC & Chem 7: 01/12/19 03:17 01/12/19 03:17 Labs: Short CBC 01/11/19 01/12/19 Range/Units 21:14 03:17 WBC 6.3 6.3 (4.3-11.1) K/mcL Hgb 11.2 L 10.7 L (12.9-16.9) g/dL Hct 32.3 L 31.3 L (37.5-50.1) % Plt Count 280 252 (140-400) K/mcL Neutrophils # 2.1 (1.6-8.9) K/mcL BMP 01/11/19 01/12/19 21:14 03:17 Sodium 140 140 Potassium 3.9 3.9 Chloride 107 107 Carbon Dioxide 24 24 BUN 14 17 Creatinine 0.77 0.70 Glucose 105 97 Calcium 8.8 8.4 L Cardiac Enzymes 01/11/19 01/12/19 Range/Units 21:14 03:17 Troponin I < 0.03 < 0.03 (< 0.04) ng/mL - Impressions Impressions Chest X-Ray 01/11/19 21:58 IMPRESSION: No acute findings. D/ / Edin Pitts / Edin Pitts Interpreting Provider: Edin Pitts Consult Discharge Plan - Plan Referrals: Alysa Chowdary [Primary Care Provider] - (Called and left message with patient name and birthdate) (1) Chest pain Qualifiers: Chest pain type: unspecified Qualified Code(s): R07.9 - Chest pain, unspecified (3) Bipolar disorder Qualifiers: Qualified Code(s): F31.9 - Bipolar disorder, unspecified (4) Hypertension Qualifiers: Hypertension type: unspecified Qualified Code(s): I10 - Essential (primary) hypertension
[2019-01-12] MEDS ORDERED: *HR* Rivaroxaban 10 MG TABLET PO SCH (17:00)
[2019-01-12] MEDS ORDERED: rOPINIRole 1 MG TABLET PO SCH (21:00)
[2019-01-12] MEDS ORDERED: traZODone 50 MG TABLET PO SCH (21:00)
[2019-01-12] MEDS: Nicotine 2 MG GUM BC SCH ×3 (23:48→23:49)
[2019-01-13 05:26] LABS: Hematocrit 31.6 % (37.5-50.1); Hemoglobin 10.5 g/dL (12.9-16.9); Immature Granulocytes % 0.3 % (0-4); Lymphocytes % 52.1 %; Mean Corpuscular HGB Conc 33.2 g/dL (31.6-35.5); Mean Corpuscular Hemoglobin 31.3 pg (28.0-33.3); Mean Corpuscular Volume 94.3 fL (83.0-100.0); Mean Platelet Volume 10.1 fL (9.4-12.4); Monocytes % 9.4 %; Platelet Count 228 K/mcL (140-400); Red Blood Count 3.35 M/mcL (4.19-5.50); Red Cell Distribution Width 13.2 % (11.5-14.5); Segmented Neutrophils % 35.2 %; White Blood Count 6.3 K/mcL (4.3-11.1)
[2019-01-13 05:27] LABS: Basophils % 0.6 %; Eosinophils # 0.2 K/mcL (0.0-0.6); Eosinophils % 2.4 %; Lymphocytes # 3.3 K/mcL (0.6-4.6); Monocytes # 0.6 K/mcL (0.0-1.3); Neutrophils # 2.2 K/mcL (1.6-8.9)
[2019-01-13 05:42] LABS: BUN/Creatinine Ratio 25 (6-26); Blood Urea Nitrogen 20 mg/dL (6-20); Calcium 8.9 mg/dL (8.6-10.3); Carbon Dioxide 25 mEq/L (23-29); Chloride 104 mEq/L (98-107); Glucose 91 mg/dL (70-105); Osmolality,Calculated 290 (280-300); Potassium 4.3 mEq/L (3.5-5.1); Sodium 139 mEq/L (136-145); eGFR For African Americans > 60 (> 60); eGFR For Non-African Americans > 60 (> 60)
[2019-01-13] MEDS: Nicotine 2 MG GUM BC SCH ×2 (06:16→07:54)
--- NOTE | 2019-01-13 06:43 | Electrocardiograph Report ---
[employer] [facility] Test Date: 2019-01-11 Pat Name: Saurabh Lee Department: EXAM8 Room: Gender: M Weight Checker: : 1980 Requested By: Neri Mata Order Number: [id number] Reading MD: Enrique Garland Measurements Intervals [place] Rate: 90 P: 47 OK: 160 QRS: 75 QRSD: 96 T: 27 QT: 322 QTc: 394 Interpretive Statements Sinus rhythm Electronically Signed On 01-13-2019 6:41:25 EDT by Enrique Garland
[2019-01-13] MEDS: Nitroglycerin 25 MG/250 ML INFUS..BTL IVC SCH (07:23)
[2019-01-13] MEDS: Gabapentin 300 MG CAPSULE PO SCH (07:53)
[2019-01-13] MEDS: clonazePAM 1 MG TABLET PO SCH (07:54)
[2019-01-13 08:06] VITALS: BP 119/74
[2019-01-13] MEDS ORDERED: Divalproex (12 HR) 500 MG TABLET PO SCH (09:00)
--- NOTE | 2019-01-13 09:45 | Discharge Summary ---
- NOTES TO OUTPATIENT PROVIDER Notes to Outpatient Provider: Presented with the chest pain, Echo normal, troponins negaitve, no interventions done, Date of Encounter: 01/13/19 Time of Encounter: 09:30 - Discharge Diagnosis (1) Chest pain Priority: Primary Status: Acute Qualifiers: Chest pain type: unspecified Qualified Code(s): R07.9 - Chest pain, unspecified (2) Decreased hemoglobin Priority: Secondary Status: Acute (3) Bipolar disorder Priority: Secondary Status: Chronic Qualifiers: Qualified Code(s): F31.9 - Bipolar disorder, unspecified (4) Hypertension Priority: Secondary Status: Chronic Qualifiers: Hypertension type: unspecified Qualified Code(s): I10 - Essential (primary) hypertension (5) Drug abuse and dependence Priority: Secondary Status: Chronic (6) Tobacco abuse Priority: Secondary Status: Chronic Hospital course: Mr. Lee is a 38 year old male with a past medical history is significant for sick sinus syndrome status post pacemaker placement, CHF, DVT and PE on anticoagulation, bipolar disorder, PTSD, drug abuse, presented to the hospital because of left-sided chest pain. There are concerns of ST changes on EKG and the patient was started on nitro drip. No heparin was given because the patient was already on anticoagulation. Troponins were trended which remained to be normal. Echocardiogram was done which showed normal ejection fraction without any new wall motion abnormalities. Cardiology recommended no further workup. Patient is feeling better today. At this point, denies chest pain, shortness of breath. Will be discharged in stable condition. - Time Spent with Patient Total time spent providing and/or coordinating discharge services: 35 minutes - Discharge Medications Prescriptions: Continued Gabapentin [Neurontin] 300 mg PO TID Prazosin [Minipress] 1 mg PO HS #15 capsule traZODone [TraZODone] 100 mg PO HS #30 tablet Ranitidine HCl [Acid Major Account Representative] 150 mg PO BID PRN #15 tab PRN Reason: Indigestion Divalproex (12 HR) [Depakote (12 HR)] 500 mg PO QAM #15 Divalproex (12 HR) [Depakote (12 HR)] 1,000 mg PO HS #30 Doxepin HCl 50 mg PO HS #15 Lisinopril 30 mg PO DAILY #15 tab Pantoprazole Sodium [Protonix] 40 mg PO QAM #15 Albuterol Sulfate [Proventil Inhaler] 2 puff IH Q4HR PRN #1 PRN Reason: Shortness Of Breath rOPINIRole [Requip] 1 mg PO HS #15 tab Rivaroxaban [Xarelto] 20 mg PO 1700 #15 tab Acetaminophen [Tylenol] 1,000 mg PO TID Benztropine [Cogentin] 1 mg PO BID clonazePAM [Klonopin] 1 mg PO BID 2 Days #4 tab Home Medications: Gabapentin [Neurontin] 300 mg PO TID 01/02/19 [History] Albuterol Sulfate [Proventil Inhaler] 2 puff IH Q4HR PRN #1 01/08/19 [Rx] Divalproex (12 HR) [Depakote (12 HR)] 1,000 mg PO HS #30 01/08/19 [Rx] Divalproex (12 HR) [Depakote (12 HR)] 500 mg PO QAM #15 01/08/19 [Rx] Doxepin HCl 50 mg PO HS #15 01/08/19 [Rx] Lisinopril 30 mg PO DAILY #15 tab 01/08/19 [Rx] Pantoprazole Sodium [Protonix] 40 mg PO QAM #15 01/08/19 [Rx] Prazosin [Minipress] 1 mg PO HS #15 capsule 01/08/19 [Rx] Ranitidine HCl [Acid Major Account Representative] 150 mg PO BID PRN #15 tab 01/08/19 [Rx] Rivaroxaban [Xarelto] 20 mg PO 1700 #15 tab 01/08/19 [Rx] rOPINIRole [Requip] 1 mg PO HS #15 tab 01/08/19 [Rx] traZODone [TraZODone] 100 mg PO HS #30 tablet 01/08/19 [Rx] Acetaminophen [Tylenol] 1,000 mg PO TID 01/12/19 [History] Benztropine [Cogentin] 1 mg PO BID 01/12/19 [History] clonazePAM [Klonopin] 1 mg PO BID 2 Days #4 tab 01/13/19 [Rx] Allergies/Adverse Reactions: Allergy/AdvReac Type Severity Reaction Status Date / Time haloperidol [From Haldol] Allergy See Verified 01/11/19 20:42 Comments quetiapine [From Seroquel] Allergy Swelling Verified 01/11/19 20:42 of Lip/Tongue/Throat vancomycin Allergy Anaphylaxis Verified 01/11/19 20:42 SOLUMEDROL Allergy Anaphylaxis Uncoded 01/11/19 20:42 Date of admission: 01/11/19 23:15 Primary care physician: Alysa Chowdary Consults: 01/11/19 23:11 Consult to Cardiology [CONS] Stat Comment: Consulting Provider: Cardiology Cristin Reason for Consult: acs Call Completed: Yes 01/12/19 00:46 Consult to Automotive Manager [CONS] Routine Reason for SW Consult: ivdu - Constitutional Vitals: Temp Pulse Resp BP Pulse Ox 98.0 F 63 16 119/74 97 01/13/19 08:05 01/13/19 08:05 01/13/19 08:05 01/13/19 08:05 01/13/19 08:05 Exam: General: Alert and oriented, no physical distress, able to follow commands. HEENT: No thyromegaly, no lymphadenopathy, no discharge. Eyes: No discharge. Normal conjuctiva, no icterus Respiratory: Normal vesicular breathing, no added sounds, breathing equal in both sides. CVS: Normal heart sounds, no murmurs, regular rhthm, no edema Extremities: No peripheral edema, peripheral pulses intact. Lymph nodes: No lymphadenopathy Gastrointestinal: Soft, nontender abdomen, normal abdominal sounds. No distention noted. Genitourinary: No paravertebral tenderness. Skin: No rash, ulcers or wound. Neurological: Alert and oriented. No focal deficits. Cranial nerves II-XII intact. - Patient Status Disposition: Home, Self-Care Condition: Good Overall status at discharge: patient is progressing back to baseline - Discharge Instructions Follow Up With: Alysa Chowdary [Primary Care Provider] - 01/22/19 10:00 am (Please follow up as schedule....) - Diet and Activity Activity: increase activity as tolerated Diet: advance to your usual diet
--- NOTE | 2019-01-13 15:03 | Electrocardiograph Report ---
[address] [address] Test Date: 2019-01-12 Pat Name: Saurabh Lee Department: 112 Room: 2A Gender: M Skein Drier: : 1980 Requested By: [id number] Order Number: [id number] Reading MD: Berta Marroquin Measurements Intervals [place] Rate: 81 P: 44 MN: 168 QRS: 61 QRSD: 102 T: 15 QT: 352 QTc: 390 Interpretive Statements SINUS RHYTHM NONSPECIFIC T-WAVE ABNORMALITY Electronically Signed On 01-13-2019 15:01:29 EDT by Berta Marroquin
--- NOTE | 2019-01-15 10:19 | Electrocardiograph Report ---
[place] [employer] [facility] Test Date: 2019-01-11 Pat Name: Saurabh Lee Department: 104 Room: Gender: M Belly Dump Driver: Nicolette REYESB: 1980 Requested By: Neri Mata Order Number: [id number] Reading MD: Enrique Garland Measurements Intervals [place] Rate: 99 P: 66 CT: 148 QRS: 92 QRSD: 97 T: 40 QT: 318 QTc: 374 Interpretive Statements SINUS RHYTHM Electronically Signed On 01-15-2019 9:54:24 EDT by Enrique Garland
== END 2019-01-13 10:45 | disposition home or self-care (01) ==
LOC: 2ANU 20:36 → EMEROOARM 20:36 → SUATTDRO 23:15 → 2ANU 01-12 00:09
PROVIDERS: ADMIT Internal Medicine; ATTEND Internal Medicine

== ENCOUNTER 2019-01-29 20:38 | Observation (INO) ==
[2019-01-29] MEDS ORDERED: Ondansetron 4 MG/2 ML VIAL IVP ONE (21:35)
[2019-01-29] MEDS ORDERED: 0.9 % Sodium Chloride 1,000 ML IVC ONE (21:35)
[2019-01-29] MEDS ORDERED: Isovue-370 500 ML BOTTLE IVP ONE (21:36)
[2019-01-29] MEDS ORDERED: Dicyclomine 20 MG/2 ML AMPUL IM STA (21:36)
[2019-01-29 22:11] LABS: Bilirubin,Urine Negative (Negative); Blood,Urine Negative (Negative); Clarity,Urine Clear (Clear); Color,Urine Yellow (Yellow); Glucose,Urine (UA) Normal (Normal); Ketones,Urine Negative (Negative); Leukocyte Esterase,Urine Negative (Negative); Nitrite,Urine Negative (Negative); Protein,Urine Negative (Neg-Trace); Specific Gravity,Urine 1.011 (1.010-1.025); Urobilinogen,Urine Normal (Normal)
[2019-01-29 22:22] LABS: Immature Granulocytes % 0.4 % (0-4)
[2019-01-29 22:29] LABS: Alanine Aminotransferase 11 Units/L (7-52); Albumin/Globulin Ratio 1.8 (1.1-2.2); Alkaline Phosphatase 52 Units/L (34-104); Amylase 31 Units/L (29-103); Aspartate Amino Transferase 18 Units/L (13-39); BUN/Creatinine Ratio 10 (6-26); Bilirubin,Direct 0.1 mg/dL (0.0-0.2); Bilirubin,Indirect 0.1 mg/dL (0.0-1.2); Bilirubin,Total 0.2 mg/dL (0.3-1.0); Blood Urea Nitrogen 8 mg/dL (6-20); Calcium 9.3 mg/dL (8.6-10.3); Carbon Dioxide 28 mEq/L (23-29); Chloride 109 mEq/L (98-107); Globulin 2.2 g/dL (2.4-3.5); Glucose 113 mg/dL (70-105); Lipase 13 Units/L (11-82); Osmolality,Calculated 291 (280-300); Sodium 141 mEq/L (136-145); Total Protein 6.2 g/dL (6.4-8.9); eGFR For African Americans > 60 (> 60); eGFR For Non-African Americans > 60 (> 60)
[2019-01-29 22:30] LABS: Basophils # 0.1 K/mcL (0.0-0.2); Basophils % 0.7 %; Eosinophils # 0.2 K/mcL (0.0-0.6); Eosinophils % 2.2 %; Hematocrit 36.7 % (37.5-50.1); Hemoglobin 12.3 g/dL (12.9-16.9); Immature Platelets 3.3 % (1.1-6.1); Lymphocytes # 3.4 K/mcL (0.6-4.6); Lymphocytes % 40.1 %; Mean Corpuscular HGB Conc 33.5 g/dL (31.6-35.5); Mean Corpuscular Hemoglobin 31.5 pg (28.0-33.3); Mean Corpuscular Volume 94.1 fL (83.0-100.0); Mean Platelet Volume 10.1 fL (9.4-12.4); Monocytes # 0.7 K/mcL (0.0-1.3); Monocytes % 8.6 %; Neutrophils # 4.1 K/mcL (1.6-8.9); Platelet Count 260 K/mcL (140-400); Red Cell Distribution Width 13.9 % (11.5-14.5); White Blood Count 8.5 K/mcL (4.3-11.1)
[2019-01-29 22:45] LABS: Platelet Estimate Normal (Normal); Reactive Lymphocytes Present (Not Present)
[2019-01-29] MEDS ORDERED: Ketorolac 15 MG/ML VIAL IVP ONE (23:02)
[2019-01-30] MEDS ORDERED: Morphine Sulfate 2 MG/ML SYRINGE IVP ONE (00:42)
[2019-01-30] MEDS ORDERED: Ketorolac 30 MG/ML VIAL IVP PRN (03:03)
[2019-01-30] MEDS ORDERED: Naloxone 0.4 MG/ML INJ IVP PRN (03:03)
[2019-01-30] MEDS ORDERED: Nicotine 2 MG GUM BC PRN (03:12)
[2019-01-30 04:03] LABS: Hematocrit 36.4 % (37.5-50.1); Hemoglobin 12.1 g/dL (12.9-16.9); Immature Platelets 2.8 % (1.1-6.1); Mean Corpuscular HGB Conc 33.2 g/dL (31.6-35.5); Mean Corpuscular Volume 93.3 fL (83.0-100.0); Red Blood Count 3.9 M/mcL (4.19-5.50); White Blood Count 7.9 K/mcL (4.3-11.1)
[2019-01-30 04:22] LABS: BUN/Creatinine Ratio 8 (6-26); Blood Urea Nitrogen 7 mg/dL (6-20); Carbon Dioxide 27 mEq/L (23-29); Chloride 109 mEq/L (98-107); Glucose 87 mg/dL (70-105); Magnesium 2.3 mg/dL (1.6-2.6); Osmolality,Calculated 289 (280-300); Phosphorous 4.5 mg/dL (2.7-4.5); Potassium 4.6 mEq/L (3.5-5.1); Sodium 141 mEq/L (136-145); eGFR For African Americans > 60 (> 60); eGFR For Non-African Americans > 60 (> 60)
[2019-01-30] MEDS ORDERED: Acetaminophen IV 1,000 MG/100 ML INFUS..BTL IVPB ONE (05:01)
[2019-01-30] MEDS ORDERED: Bisacodyl 10 MG RECTAL SUPPOSITORY RC ONE (09:00)
[2019-01-30] MEDS ORDERED: Famotidine 20 MG TABLET PO PRN (10:06)
[2019-01-30] MEDS ORDERED: Divalproex (12 HR) 500 MG TABLET PO SCH ×2 (11:18→21:00)
[2019-01-30] MEDS ORDERED: clonazePAM 0.5 MG TABLET PO SCH ×2 (11:19→15:00)
[2019-01-30] MEDS ORDERED: Gabapentin 300 MG CAPSULE PO SCH (15:00)
[2019-01-30 15:03] VITALS: BP 119/75
[2019-01-30] MEDS ORDERED: SODIUM CHLORIDE/NAHCO3/KCL/PEG 4,000 ML SOLN.RECON PO ONE (15:26)
[2019-01-30] MEDS ORDERED: *HR* Rivaroxaban 10 MG TABLET PO SCH (17:00)
[2019-01-30] MEDS ORDERED: rOPINIRole 1 MG TABLET PO SCH (21:00)
[2019-01-31] MEDS ORDERED: Divalproex (12 HR) 500 MG TABLET PO SCH (09:00)
== END 2019-01-30 19:15 | disposition home or self-care (01) ==
LOC: 3ANU 20:38 → EMEROOARM 20:38 → SUATTDRO 01-30 01:42 → 3ANU 01-30 02:06
PROVIDERS: ADMIT Internal Medicine; ATTEND Internal Medicine

== ENCOUNTER 2019-02-15 21:03 | Inpatient (IN) ==
[2019-02-15 21:48] LABS: Basophils # 0.1 K/mcL (0.0-0.2); Basophils % 0.5 %; Eosinophils # 0.2 K/mcL (0.0-0.6); Eosinophils % 1.2 %; Hematocrit 43.9 % (37.5-50.1); Hemoglobin 14.9 g/dL (12.9-16.9); Immature Granulocytes % 0.4 % (0-4); Lymphocytes % 23.1 %; Mean Corpuscular HGB Conc 33.9 g/dL (31.6-35.5); Mean Corpuscular Volume 94.4 fL (83.0-100.0); Mean Platelet Volume 9.6 fL (9.4-12.4); Monocytes # 1.2 K/mcL (0.0-1.3); Monocytes % 9.1 %; Neutrophils # 8.5 K/mcL (1.6-8.9); Platelet Count 329 K/mcL (140-400); Red Blood Count 4.65 M/mcL (4.19-5.50); Red Cell Distribution Width 13.6 % (11.5-14.5); Segmented Neutrophils % 65.7 %
[2019-02-15 21:49] LABS: Estimated Average Glucose 97 mg/dl; White Blood Count 12.9 K/mcL (4.3-11.1)
[2019-02-15 22:10] LABS: Acetaminophen < 10 mcg/mL (10-20); BUN/Creatinine Ratio 11 (6-26); Blood Urea Nitrogen 12 mg/dL (6-20); Calcium 10.3 mg/dL (8.6-10.3); Carbon Dioxide 23 mEq/L (23-29); Chloride 105 mEq/L (98-107); Chol/HDL Ratio 4.4 (0-4.9); Cholesterol 204 mg/dL (< 200); Ethanol < 10 mg/dL (Less than 10); Glucose 107 mg/dL (70-105); HDL Cholesterol 46 mg/dL (40-59); LDL Cholesterol,Calculated 139 mg/dL (0-99); Osmolality,Calculated 294 (280-300); Potassium 3.7 mEq/L (3.5-5.1); Salicylate < 2.5 mg/dL (15.0-30.0); Sodium 142 mEq/L (136-145); Triglycerides 97 mg/dL (< 150); eGFR For African Americans > 60 (> 60); eGFR For Non-African Americans > 60 (> 60)
[2019-02-15 22:49] LABS: Bilirubin,Urine Negative (Negative); Blood,Urine Negative (Negative); Clarity,Urine Clear (Clear); Color,Urine Yellow (Yellow); Glucose,Urine (UA) Normal (Normal); Ketones,Urine Negative (Negative); Leukocyte Esterase,Urine Negative (Negative); Nitrite,Urine Negative (Negative); PH,Urine 6.5 pH Units (5.0-8.0); Protein,Urine 30 mg/dL (Neg-Trace); Urobilinogen,Urine Normal (Normal)
[2019-02-15 22:51] LABS: Bacteria,Urine None Seen per hpf (None-Few); Hyaline Casts,Urine None Seen per lpf (None-Few); RBC,Urine 0-3 per hpf (0-3); Squamous Epithelial Cell,Urine Moderate per lpf (None-Few); WBC,Urine 0-3 per hpf (0-3)
[2019-02-15 22:58] LABS: Amphetamine Screen,Urine Negative ng/mL (Cutoff=1000); Barbiturate Screen,Urine Negative ng/mL (Cutoff=200); Benzodiazepines Screen,Urine Negative ng/mL (Cutoff=200); Cannabinoid Screen,Urine Negative ng/mL (Cutoff = 50); Cocaine Screen,Urine Negative ng/mL (Cutoff= 300); Opiate Screen,Urine Negative ng/mL (Cutoff=300); Phencyclidine Screen,Urine Negative ng/mL (Cutoff=25)
[2019-02-16] MEDS ORDERED: hydrOXYzine pamoate 25 MG CAPSULE PO PRN (01:35)
[2019-02-16] MEDS ORDERED: traZODone 50 MG TABLET PO PRN (01:35)
[2019-02-16] MEDS ORDERED: Haloperidol Lactate 5 MG/ML VIAL IM PRN (01:35)
[2019-02-16] MEDS ORDERED: MOM Conc 10 ML UD.LIQ PO PRN (01:35)
[2019-02-16] MEDS ORDERED: Mag Hydrox/Al Hydrox/Simeth 30 ML UDC PO PRN (01:35)
[2019-02-16] MEDS ORDERED: Acetaminophen 325 MG TABLET PO PRN (01:35)
[2019-02-16] MEDS: *HR* Rivaroxaban 10 MG TABLET PO SCH ×2 (02:42→17:38)
[2019-02-16] MEDS: Nicotine 2 MG GUM BC SCH ×2 (07:04→09:54)
[2019-02-16] MEDS: Lisinopril 20 MG TABLET PO SCH (12:31)
[2019-02-16] MEDS: Cholecalciferol (D-3) 1,000 UNIT (25MCG) TABLET PO SCH (12:32)
[2019-02-16] MEDS: Divalproex (12 HR) 500 MG TABLET PO SCH ×2 (12:32→21:28)
[2019-02-16] MEDS: Famotidine 20 MG TABLET PO SCH ×2 (12:32→21:28)
[2019-02-16] MEDS: Budesonide/Formoterol 80/4.5 1 PUFF INH IH SCH ×2 (15:36→21:29)
[2019-02-16] MEDS: Iron Polysaccharide Complex 150 MG CAPSULE PO SCH (15:36)
[2019-02-16] MEDS: Gabapentin 300 MG CAPSULE PO SCH ×2 (16:29→21:28)
[2019-02-16] MEDS: clonazePAM 0.5 MG TABLET PO PRN (17:38)
[2019-02-16] MEDS: OLANZapine 5 MG TAB.RAPDIS PO SCH (21:28)
[2019-02-17] MEDS: Gabapentin 300 MG CAPSULE PO SCH ×2 (20:32→21:07)
[2019-02-17] MEDS: Famotidine 20 MG TABLET PO SCH ×2 (20:32→21:07)
[2019-02-17] MEDS: Divalproex (12 HR) 500 MG TABLET PO SCH ×2 (20:32→21:07)
[2019-02-17] MEDS: OLANZapine 5 MG TAB.RAPDIS PO SCH (20:32)
[2019-02-17] MEDS: clonazePAM 0.5 MG TABLET PO PRN (20:34)
[2019-02-17] MEDS: Nicotine 2 MG GUM BC PRN (20:47)
[2019-02-17] MEDS: Iron Polysaccharide Complex 150 MG CAPSULE PO SCH (21:07)
[2019-02-17] MEDS: Cholecalciferol (D-3) 1,000 UNIT (25MCG) TABLET PO SCH (21:07)
[2019-02-17] MEDS: Lisinopril 20 MG TABLET PO SCH (21:08)
[2019-02-17] MEDS: *HR* Rivaroxaban 10 MG TABLET PO SCH (21:09)
[2019-02-17] MEDS: Budesonide/Formoterol 80/4.5 1 PUFF INH IH SCH ×2 (21:09→22:00)
[2019-02-18] MEDS: Lisinopril 20 MG TABLET PO SCH (08:39)
[2019-02-18] MEDS: Divalproex (12 HR) 500 MG TABLET PO SCH (08:40)
[2019-02-18] MEDS: Cholecalciferol (D-3) 1,000 UNIT (25MCG) TABLET PO SCH (08:40)
[2019-02-18] MEDS: Gabapentin 300 MG CAPSULE PO SCH (08:41)
[2019-02-18] MEDS: Iron Polysaccharide Complex 150 MG CAPSULE PO SCH (08:41)
[2019-02-18] MEDS: Famotidine 20 MG TABLET PO SCH (08:41)
[2019-02-18] MEDS: clonazePAM 0.5 MG TABLET PO PRN (08:41)
[2019-02-18] MEDS: Nicotine 2 MG GUM BC PRN (08:45)
[2019-02-18 09:52] VITALS: BP 145/82
== END 2019-02-18 09:00 | disposition other institution (70) | DRG 861 ==
LOC: EMEROOARM 21:03 → 1ANU 02-16 01:33
PROVIDERS: ADMIT Psychiatry & Neurology Psychiatry; ATTEND Psychiatry & Neurology Psychiatry

== ENCOUNTER 2019-05-26 13:13 | Observation (INO) ==
[2019-05-26 13:41] LABS: Bilirubin,Urine Negative (Negative); Blood,Urine Negative (Negative); Clarity,Urine Clear (Clear); Color,Urine Yellow (Yellow); Glucose,Urine (UA) Normal (Normal); Ketones,Urine Negative (Negative); Leukocyte Esterase,Urine Negative (Negative); Nitrite,Urine Negative (Negative); PH,Urine 7.5 pH Units (5.0-8.0); Protein,Urine Trace mg/dL (Neg-Trace); Specific Gravity,Urine 1.023 (1.010-1.025); Urobilinogen,Urine Normal (Normal)
[2019-05-26 13:57] LABS: Basophils # 0.1 K/mcL (0.0-0.2); Basophils % 0.8 %; Eosinophils # 0.2 K/mcL (0.0-0.6); Eosinophils % 2.3 %; Hematocrit 38.5 % (37.5-50.1); Hemoglobin 13.5 g/dL (12.9-16.9); Immature Granulocytes % 0.4 % (0-4); Lymphocytes # 2.2 K/mcL (0.6-4.6); Lymphocytes % 29.3 %; Mean Corpuscular HGB Conc 35.1 g/dL (31.6-35.5); Mean Corpuscular Hemoglobin 32.4 pg (28.0-33.3); Mean Corpuscular Volume 92.3 fL (83.0-100.0); Mean Platelet Volume 9.5 fL (9.4-12.4); Monocytes # 0.7 K/mcL (0.0-1.3); Monocytes % 8.8 %; Neutrophils # 4.4 K/mcL (1.6-8.9); Platelet Count 225 K/mcL (140-400); Red Blood Count 4.17 M/mcL (4.19-5.50); Red Cell Distribution Width 14.1 % (11.5-14.5); Segmented Neutrophils % 58.4 %; White Blood Count 7.5 K/mcL (4.3-11.1)
[2019-05-26 13:59] LABS: Amphetamine Screen,Urine Negative ng/mL (Cutoff=1000); Barbiturate Screen,Urine Negative ng/mL (Cutoff=200); Benzodiazepines Screen,Urine Negative ng/mL (Cutoff=200); Cannabinoid Screen,Urine Negative ng/mL (Cutoff = 50); Cocaine Screen,Urine Negative ng/mL (Cutoff= 300); Opiate Screen,Urine Positive ng/mL (Cutoff=300); Phencyclidine Screen,Urine Negative ng/mL (Cutoff=25)
[2019-05-26] MEDS ORDERED: *HR* LORazepam 1 MG TABLET PO ONE (14:04)
[2019-05-26 14:11] LABS: Estimated Average Glucose 100 mg/dl
[2019-05-26 14:23] LABS: Acetaminophen < 10 mcg/mL (10-20); BUN/Creatinine Ratio 11 (6-26); Blood Urea Nitrogen 8 mg/dL (6-20); Calcium 9.2 mg/dL (8.6-10.3); Carbon Dioxide 24 mEq/L (23-29); Chloride 107 mEq/L (98-107); Chol/HDL Ratio 4.8 (0-4.9); Cholesterol 160 mg/dL (< 200); Ethanol < 10 mg/dL (Less than 10); Glucose 135 mg/dL (70-105); HDL Cholesterol 33 mg/dL (40-59); LDL Cholesterol,Calculated 70 mg/dL (0-99); Osmolality,Calculated 292 (280-300); Potassium 3.9 mEq/L (3.5-5.1); Salicylate < 2.5 mg/dL (15.0-30.0); Sodium 141 mEq/L (136-145); Triglycerides 283 mg/dL (< 150); eGFR For African Americans > 60 (> 60); eGFR For Non-African Americans > 60 (> 60)
[2019-05-26] MEDS ORDERED: MOM Conc 10 ML UD.LIQ PO PRN (16:39)
[2019-05-26] MEDS ORDERED: hydrOXYzine pamoate 25 MG CAPSULE PO PRN (16:39)
[2019-05-26] MEDS ORDERED: Mag Hydrox/Al Hydrox/Simeth 30 ML UDC PO PRN (16:39)
[2019-05-26] MEDS ORDERED: Acetaminophen 325 MG TABLET PO PRN (16:39)
[2019-05-26] MEDS ORDERED: *HR* LORazepam 2 MG/ML VIAL IM PRN (16:39)
[2019-05-26] MEDS ORDERED: *HR* LORazepam 1 MG TABLET PO PRN (16:39)
[2019-05-26] MEDS ORDERED: WATER FOR INJ IM PRN (19:28)
[2019-05-26] MEDS ORDERED: ZIPRASIDONE IM PRN (19:28)
[2019-05-26] MEDS: Nicotine 21 MG PATCH.TD24 TD SCH (22:33)
[2019-05-27] MEDS: Nicotine 21 MG PATCH.TD24 TD SCH (13:16)
[2019-05-27] MEDS: cloNIDine HCl 0.1 MG TABLET PO SCH ×2 (13:55→21:38)
[2019-05-27] MEDS: OLANZapine 5 MG TAB.RAPDIS PO SCH (13:55)
[2019-05-27] MEDS: Divalproex (12 HR) 500 MG TABLET PO SCH ×2 (13:56→21:38)
[2019-05-27] MEDS: *HR* Rivaroxaban 10 MG TABLET PO SCH (17:10)
[2019-05-27] MEDS: traZODone 50 MG TABLET PO PRN (21:37)
[2019-05-27] MEDS: OLANZapine 10 MG TAB.RAPDIS PO SCH (21:39)
[2019-05-28] MEDS: Nicotine 21 MG PATCH.TD24 TD SCH (09:03)
[2019-05-28] MEDS: Divalproex (12 HR) 500 MG TABLET PO SCH ×2 (09:04→21:15)
[2019-05-28] MEDS: cloNIDine HCl 0.1 MG TABLET PO SCH ×3 (09:04→21:15)
[2019-05-28] MEDS: OLANZapine 5 MG TAB.RAPDIS PO SCH ×2 (09:06→14:03)
[2019-05-28] MEDS: *HR* Rivaroxaban 10 MG TABLET PO SCH (17:31)
[2019-05-28] MEDS: OLANZapine 10 MG TAB.RAPDIS PO SCH (21:15)
[2019-05-28] MEDS: traZODone 50 MG TABLET PO PRN (21:19)
[2019-05-29] MEDS: Divalproex (12 HR) 500 MG TABLET PO SCH (09:03)
[2019-05-29] MEDS: cloNIDine HCl 0.1 MG TABLET PO SCH ×2 (09:04→13:55)
[2019-05-29] MEDS: Nicotine 21 MG PATCH.TD24 TD SCH (09:06)
[2019-05-29] MEDS: OLANZapine 5 MG TAB.RAPDIS PO SCH ×2 (09:07→13:55)
[2019-05-29 09:11] VITALS: BP 122/87
[2019-05-29] MEDS: Nicotine 2 MG GUM BC PRN ×3 (10:01→14:30)
== END 2019-05-29 15:34 | disposition home or self-care (01) ==
LOC: 1ANU 13:13 → EMEROOARM 13:13 → 1ANU 16:28
PROVIDERS: ADMIT Psychiatry & Neurology Psychiatry; ATTEND Psychiatry & Neurology Psychiatry

== ENCOUNTER 2020-05-28 12:31 | Observation (INO) ==
[2020-05-28] MEDS ORDERED: Aspirin 81 MG TAB.CHEW PO ONE (13:36)
[2020-05-28] MEDS ORDERED: *HR* HYDROcodone/Acet 5/325 mg TABLET PO ONE (13:51)
[2020-05-28 14:12] LABS: INR 1.3; Prothrombin Time 15.3 Seconds (9.4-12.1)
[2020-05-28 14:14] LABS: Activated Partial Thrombo Time 37.5 Seconds (26.0-36.0); Basophils % 0.6 %; Eosinophils # 0.3 K/mcL (0.0-0.6); Eosinophils % 3.8 %; Hematocrit 37.9 % (37.5-50.1); Hemoglobin 12.9 g/dL (12.9-16.9); Immature Granulocytes % 0.4 % (0-4); Lymphocytes # 1.7 K/mcL (0.6-4.6); Lymphocytes % 24.7 %; Mean Corpuscular Hemoglobin 30.1 pg (28.0-33.3); Mean Corpuscular Volume 88.6 fL (83.0-100.0); Mean Platelet Volume 9.7 fL (9.4-12.4); Neutrophils # 3.9 K/mcL (1.6-8.9); Platelet Count 201 K/mcL (140-400); Red Blood Count 4.28 M/mcL (4.19-5.50); Red Cell Distribution Width 13.7 % (11.5-14.5); Segmented Neutrophils % 56.5 %; White Blood Count 6.9 K/mcL (4.3-11.1)
[2020-05-28 14:33] LABS: BUN/Creatinine Ratio 42 (6-26); Blood Urea Nitrogen 27 mg/dL (6-20); Carbon Dioxide 24 mEq/L (23-29); Chloride 109 mEq/L (98-107); Glucose 100 mg/dL (70-105); Osmolality,Calculated 299 (280-300); Potassium 3.2 mEq/L (3.5-5.1); Sodium 142 mEq/L (136-145); Troponin I < 0.03 ng/mL (< 0.04); eGFR For African Americans > 60 (> 60); eGFR For Non-African Americans > 60 (> 60)
[2020-05-28 15:41] LABS: Bilirubin,Urine Negative (Negative); Blood,Urine Large (Negative); Clarity,Urine Turbid (Clear); Color,Urine Yellow (Yellow); Glucose,Urine (UA) Normal (Normal); Ketones,Urine 10 mg/dL (Negative); Leukocyte Esterase,Urine Negative (Negative); Mucus,Urine Few per lpf (None-Few); Nitrite,Urine Negative (Negative); Protein,Urine 70 mg/dL (Neg-Trace); RBC,Urine TNTC per hpf (0-3); Specific Gravity,Urine > 1.030 (1.010-1.025); Squamous Epithelial Cell,Urine Few per hpf (None-Few)
[2020-05-28 15:49] LABS: Amphetamine Screen,Urine Positive ng/mL (Cutoff=1000); Barbiturate Screen,Urine Negative ng/mL (Cutoff=200); Benzodiazepines Screen,Urine Negative ng/mL (Cutoff=200); Cannabinoid Screen,Urine Negative ng/mL (Cutoff = 50); Cocaine Screen,Urine Negative ng/mL (Cutoff= 300); Opiate Screen,Urine Negative ng/mL (Cutoff=300); Phencyclidine Screen,Urine Negative ng/mL (Cutoff=25)
[2020-05-28] MEDS ORDERED: cefTRIAXone 1,000 MG in 0.9 % Sodium Chloride Mini Bag 100 ML IVPB ONE (15:51)
[2020-05-28] MEDS ORDERED: Naloxone 0.4 MG/ML INJ IVP PRN (16:31)
[2020-05-28] MEDS ORDERED: Ondansetron 4 MG/2 ML VIAL IVP PRN (17:39)
[2020-05-28] MEDS ORDERED: Acetaminophen 325 MG TABLET PO PRN (17:39)
[2020-05-28] MEDS ORDERED: *HR* HYDROcodone/Acet 5/325 mg TABLET PO PRN (17:39)
[2020-05-28] MEDS ORDERED: Nitroglycerin 0.4 MG TAB.SUBL SL PRN (18:25)
[2020-05-28] MEDS: clonazePAM 1 MG TABLET PO SCH (20:04)
[2020-05-28] MEDS: Pregabalin 75 MG CAPSULE PO SCH (20:05)
[2020-05-28] MEDS ORDERED: Temazepam 15 MG CAPSULE PO SCH (21:00)
[2020-05-29 02:26] LABS: Basophils % 0.9 %; Eosinophils # 0.3 K/mcL (0.0-0.6); Eosinophils % 6.3 %; Hematocrit 35.6 % (37.5-50.1); Hemoglobin 12.3 g/dL (12.9-16.9); Immature Granulocytes % 0.2 % (0-4); Lymphocytes # 1.8 K/mcL (0.6-4.6); Lymphocytes % 40.6 %; Mean Corpuscular HGB Conc 34.6 g/dL (31.6-35.5); Mean Corpuscular Hemoglobin 30.8 pg (28.0-33.3); Mean Corpuscular Volume 89.2 fL (83.0-100.0); Mean Platelet Volume 9.8 fL (9.4-12.4); Monocytes # 0.7 K/mcL (0.0-1.3); Monocytes % 15.5 %; Neutrophils # 1.6 K/mcL (1.6-8.9); Platelet Count 174 K/mcL (140-400); Red Blood Count 3.99 M/mcL (4.19-5.50); Red Cell Distribution Width 13.5 % (11.5-14.5); Segmented Neutrophils % 36.5 %; White Blood Count 4.5 K/mcL (4.3-11.1)
[2020-05-29 02:44] LABS: BUN/Creatinine Ratio 42 (6-26); Blood Urea Nitrogen 25 mg/dL (6-20); Calcium 8.7 mg/dL (8.6-10.3); Carbon Dioxide 27 mEq/L (23-29); Chloride 107 mEq/L (98-107); Glucose 116 mg/dL (70-105); Osmolality,Calculated 299 (280-300); Potassium 3.2 mEq/L (3.5-5.1); Sodium 142 mEq/L (136-145); eGFR For African Americans > 60 (> 60); eGFR For Non-African Americans > 60 (> 60)
[2020-05-29] MEDS: valACYclovir 500 MG TABLET PO SCH (07:57)
[2020-05-29] MEDS: Aspirin 81 MG TAB.CHEW PO SCH (07:57)
[2020-05-29] MEDS: Furosemide 20 MG TABLET PO SCH (07:57)
[2020-05-29] MEDS: Pregabalin 75 MG CAPSULE PO SCH ×2 (07:57→19:24)
[2020-05-29] MEDS: clonazePAM 1 MG TABLET PO SCH ×3 (07:57→19:24)
[2020-05-29] MEDS ORDERED: *HR* Buprenorphine HCl 8 MG TAB.SUBL SL SCH (09:00)
[2020-05-29] MEDS: *HR* Rivaroxaban 10 MG TABLET PO SCH (15:18)
[2020-05-30 00:51] LABS: Basophils # 0.1 K/mcL (0.0-0.2); Basophils % 1.2 %; Eosinophils # 0.2 K/mcL (0.0-0.6); Eosinophils % 4.5 %; Hematocrit 35.2 % (37.5-50.1); Hemoglobin 12.1 g/dL (12.9-16.9); Immature Granulocytes % 0.4 % (0-4); Lymphocytes # 2.1 K/mcL (0.6-4.6); Lymphocytes % 41.1 %; Mean Corpuscular HGB Conc 34.4 g/dL (31.6-35.5); Mean Corpuscular Hemoglobin 30.4 pg (28.0-33.3); Mean Corpuscular Volume 88.4 fL (83.0-100.0); Mean Platelet Volume 10.1 fL (9.4-12.4); Monocytes # 0.8 K/mcL (0.0-1.3); Neutrophils # 1.9 K/mcL (1.6-8.9); Platelet Count 187 K/mcL (140-400); Red Blood Count 3.98 M/mcL (4.19-5.50); Red Cell Distribution Width 13.3 % (11.5-14.5); Segmented Neutrophils % 37.8 %; White Blood Count 5.1 K/mcL (4.3-11.1)
[2020-05-30 01:23] LABS: BUN/Creatinine Ratio 34 (6-26); Blood Urea Nitrogen 22 mg/dL (6-20); Calcium 8.3 mg/dL (8.6-10.3); Carbon Dioxide 21 mEq/L (23-29); Chloride 109 mEq/L (98-107); Glucose 101 mg/dL (70-105); Osmolality,Calculated 289 (280-300); Potassium 4.3 mEq/L (3.5-5.1); Sodium 138 mEq/L (136-145); eGFR For African Americans > 60 (> 60); eGFR For Non-African Americans > 60 (> 60)
[2020-05-30 06:45] VITALS: BP 98/60
[2020-05-30] MEDS: clonazePAM 1 MG TABLET PO SCH ×2 (08:13→15:15)
[2020-05-30] MEDS: Pregabalin 75 MG CAPSULE PO SCH (08:13)
[2020-05-30] MEDS: Furosemide 20 MG TABLET PO SCH (08:13)
[2020-05-30] MEDS: *HR* Buprenorphine HCl 8 MG TAB.SUBL SL SCH ×2 (08:13→15:18)
[2020-05-30] MEDS: Aspirin 81 MG TAB.CHEW PO SCH (08:13)
[2020-05-30] MEDS: valACYclovir 500 MG TABLET PO SCH (08:13)
[2020-05-30] MEDS: *HR* Rivaroxaban 10 MG TABLET PO SCH (15:15)
== END 2020-05-30 15:38 | disposition short-term general hospital (02) ==
LOC: 2ANU 12:31 → EMEROOARM 12:31 → SUATTDRO 16:13 → 2ANU 18:09
PROVIDERS: ADMIT Internal Medicine; ATTEND Internal Medicine

== ENCOUNTER 2020-10-22 22:42 | Observation (INO) ==
[2020-10-22 23:46] LABS: BUN/Creatinine Ratio 13 (6-26); Blood Urea Nitrogen 9 mg/dL (6-20); Calcium 8.7 mg/dL (8.6-10.3); Carbon Dioxide 22 mEq/L (23-29); Chloride 109 mEq/L (98-107); Glucose 130 mg/dL (70-105); Osmolality,Calculated 298 (280-300); Potassium 3.6 mEq/L (3.5-5.1); Sodium 144 mEq/L (136-145); eGFR For African Americans > 60 (> 60); eGFR For Non-African Americans > 60 (> 60)
[2020-10-22 23:47] LABS: Basophils # 0.1 K/mcL (0.0-0.2); Basophils % 0.9 %; Eosinophils # 0.1 K/mcL (0.0-0.6); Hematocrit 35.8 % (37.5-50.1); Hemoglobin 12.4 g/dL (12.9-16.9); Immature Granulocytes % 0.3 % (0-4); Lymphocytes # 2.5 K/mcL (0.6-4.6); Lymphocytes % 31.8 %; Mean Corpuscular HGB Conc 34.6 g/dL (31.6-35.5); Mean Corpuscular Volume 86.5 fL (83.0-100.0); Mean Platelet Volume 10.3 fL (9.4-12.4); Monocytes # 0.6 K/mcL (0.0-1.3); Monocytes % 7.4 %; Neutrophils # 4.6 K/mcL (1.6-8.9); Platelet Count 213 K/mcL (140-400); Red Blood Count 4.14 M/mcL (4.19-5.50); Red Cell Distribution Width 13.5 % (11.5-14.5); Segmented Neutrophils % 58.6 %; White Blood Count 7.8 K/mcL (4.3-11.1)
[2020-10-22 23:49] LABS: Troponin I < 0.03 ng/mL (< 0.04)
[2020-10-23] MEDS ORDERED: ALPRAZolam 0.5 MG TABLET PO ONE (00:08)
[2020-10-23] MEDS ORDERED: Aspirin 325 MG TABLET PO ONE (01:17)
[2020-10-23 03:17] LABS: Amphetamine Screen,Urine Negative ng/mL (Cutoff=1000); Barbiturate Screen,Urine Positive ng/mL (Cutoff=200); Benzodiazepines Screen,Urine Negative ng/mL (Cutoff=200); Cannabinoid Screen,Urine Negative ng/mL (Cutoff = 50); Cocaine Screen,Urine Negative ng/mL (Cutoff= 300); Opiate Screen,Urine Negative ng/mL (Cutoff=300); Phencyclidine Screen,Urine Negative ng/mL (Cutoff=25)
[2020-10-23] MEDS ORDERED: *HR* LORazepam 2 MG/ML VIAL IVP ONE (03:45)
[2020-10-23] MEDS ORDERED: Morphine Sulfate 2 MG/ML SYRINGE IVP ONE (03:46)
[2020-10-23] MEDS ORDERED: Perflutren Lipid Microsphere 1.3 ML in 0.9 % Sodium Chloride 8.7 ML IVP PRN (03:58)
[2020-10-23] MEDS ORDERED: Naloxone 0.4 MG/ML INJ IVP PRN (04:04)
[2020-10-23] MEDS: Nitroglycerin 0.4 MG TAB.SUBL SL PRN ×3 (04:06→05:22)
[2020-10-23] MEDS ORDERED: Ondansetron 4 MG/2 ML VIAL IVP PRN (04:09)
[2020-10-23] MEDS: Famotidine 20 MG/2 ML VIAL IVP SCH ×2 (05:02→06:15)
[2020-10-23] MEDS ORDERED: *HR* Heparin 5,000 UNIT/ML VIAL SQ SCH (06:00)
[2020-10-23] MEDS ORDERED: Regadenoson 0.4 MG/5 ML SYRINGE IVP ONE (06:14)
[2020-10-23 07:08] VITALS: BP 114/67
[2020-10-23] MEDS ORDERED: Aspirin Enteric Coated 81 MG Tablet PO SCH (09:00)
[2020-10-23] MEDS ORDERED: *HR* LORazepam 2 MG/ML VIAL IVP PRN (09:00)
== END 2020-10-23 08:17 | disposition left against medical advice (07) ==
LOC: EMEROOARM 22:42 → 3BNU 22:42 → 3ANU 10-23 04:36
PROVIDERS: ADMIT Student in an Organized Health Care Education/Training Program; ATTEND Student in an Organized Health Care Education/Training Program